=== PATIENT | female | born 1950 | race African-American/Black ===

== ENCOUNTER 2016-09-24 09:06 | Day surgery (SDC) | payer MEDICARE, OTHER ==
--- NOTE | ~2016-09-24 | PREOPHP ---
PreOp History and Physical [place] [id number] [facility] [place]. [address] NAME: EDILMA BETTS : 46 STATUS : [facility]#: [id number] AGE: 66 ADM/REG DATE : 09/24/16 MR#: [id number] REPORT SERV DATE: 09/28/16 DICTATED BY: ALEXANDRE VALDEZ III DATE: 09/28/16 REPORT STATUS : Draft TRANSCRIBED BY: MODJasmina DATE: 09/28/16 HISTORY OF PRESENT ILLNESS: This 66-year-old female comes to the operating for laparoscopic partial left colectomy and partial right colectomy for two separate neoplasms of the colon. The patient was recently found to be anemic. She was found to have a large mass in the proximal ascending colon. This was an ulcerated partly obstructing mass in the proximal ascending colon. Although the biopsy shows this to be a tubular villous adenoma, it is suspicious endoscopically for malignancy. The patient also was found to have a 2-cm polyp in the cecum and 2 sessile polyps, 8 to 10 mm in size, just proximal to the cecum. The patient comes now for a laparoscopic partial right colectomy, partial left colectomy. The patient is at marked increased risk for complications due to the severe lung disease which is oxygen dependent and due to obesity. These marked increased risks have been fully and completely explained to the patient. Her questions have been answered, and she wishes to proceed with surgery. PAST MEDICAL HISTORY: 1. Hypertension. 2. Gastroesophageal reflux disease. 3. COPD, oxygen dependent. 4. Congestive heart failure. 5. Insulin-dependent diabetes mellitus. 6. Obesity. 7. Hypothyroidism. 8. History of deep venous thrombosis. PAST SURGICAL HISTORY: Includes hysterectomy and cholecystectomy. MEDICATIONS: Omeprazole, insulin, Aldactone, lisinopril, oxycodone, Eliquis, Crestor, alprazolam, torsemide, Breo, and potassium. FAMILY HISTORY: Positive for hypertension and diabetes. SOCIAL HISTORY: The patient has a continued history of tobacco abuse. No history of alcohol use. ALLERGIES: NONSTEROIDAL ANTI-INFLAMMATORY MEDICATIONS, BETADINE, LEVEMIR, AND SULFA. REVIEW OF SYSTEMS: The patient complains of fatigue, weight gain, and swelling. PHYSICAL EXAMINATION: GENERAL: This is an extremely obese chronically ill-appearing female in no acute distress. She is alert and oriented x3. She is in a wheelchair due to difficulty ambulating. She is on home oxygen. HEENT: Unremarkable. Cranial nerves 2 through 12 are normal. LUNGS: Clear. PreOp History and Physical [address] [place]. [address] NAME: EDILMA BETTS : 46 STATUS : [facility] PAT#: [id number] AGE: 66 ADM/REG DATE : 09/24/16 MR#: [id number] REPORT SERV DATE: 09/28/16 DICTATED BY: ALEXANDRE VALDEZ III DATE: 09/28/16 REPORT STATUS : Draft TRANSCRIBED BY: MODJasmina DATE: 09/28/16 CARDIAC: Normal. ABDOMEN: Soft and nontender. VITAL SIGNS: Blood pressure 124/57, heart rate 93, and temperature 97.8. EXTREMITIES: Unremarkable. LABORATORY DATA: Colonoscopy shows a partly obstructing mass in the proximal descending colon which was biopsied and found to be a tubulovillous adenoma. The area was tattooed. There was a 2-cm mass in the cecum and 2 sessile polyps in the proximal ascending colon, 8 to 10 mm in size, which were not biopsied or removed. ASSESSMENT: 1. A 66-year-old female with proximal left colon mass, likely malignant, partially obstructing, and ulcerated. 2. Three separate polyps in the cecum and proximal right colon. 3. Obesity. 4. Hypertension. 5. Chronic obstructive pulmonary disease secondary to tobacco abuse. 6. Tobacco abuse. 7. Congestive heart failure. 8. Insulin-dependent diabetes mellitus. 9. Severe deconditioning. 10.History of deep venous thrombosis. 11.Hypothyroidism. 12.Oxygen dependency. PLAN: The patient comes to the operating room now for a laparoscopic partial right colectomy and partial left colectomy. These procedures, the risks, benefits, and alternatives, including but not limited to the risk for bleeding, infection, enterotomy, injury to abdominal structure, postop small-bowel obstruction, ileus, incisional hernia, dehiscence, anastomotic leak requiring reoperation, colostomy, ureteral injury, prolonged ventilator dependency, possible need for laparotomy, anastomotic leak requiring reoperation with colostomy, ureteral injury, possible need for full laparotomy, and unforeseen complications including deep venous thrombosis, pulmonary embolus, myocardial infarction, stroke, pneumonia, and have been fully and completely explained to the patient and her family at length prior to surgery. The fact that this is a major operation with high risk for morbidity mortality because of her medical problems, her obesity, and oxygen dependency has been explained. The expected length of recovery from both open laparoscopic procedures has been explained. The option of nonoperative management has been offered to the patient but declined. The patient's questions have been answered. She clearly understands the risks and agrees to surgery as planned. MIKEY/NIC Alexandre Valdez III, M.D. PreOp History and Physical [address] [address] NAME: EDILMA BETTS : 46 STATUS : [facility] PAT#: [id number] AGE: 66 ADM/REG DATE : 09/24/16 MR#: [id number] REPORT SERV DATE: 09/28/16 DICTATED BY: ALEXANDRE VALDEZ III DATE: 09/28/16 REPORT STATUS : Draft TRANSCRIBED BY: NIC DATE: 09/28/16 / [id number] CC: Jany Gomez
--- NOTE | ~2016-09-24 | EGD ---
EGD REPORT [facility] [address] [place] [address] NAME: YECENIA SANON : 46 STATUS : REG [facility]#: [id number] AGE: 66 ADM/REG DATE : 09/24/16 MR#: [id number] REPORT SERV DATE: 09/24/16 DICTATED BY: PRESTON ROBISON DATE: 09/24/16 REPORT STATUS : Draft TRANSCRIBED BY: [employer] DATE: 09/24/16 Endoscopy Center Patient Name: Yecenia Sanon Date of : 1950 Attending MD: PRESTON ROBISON MD Procedure Date No Time: 09/24/2016 Procedure: Upper GI endoscopy Indications: Anemia, Heartburn, Suspected esophageal reflux Referring MD: Narinder MCGINNIS MD Medicines: General Anesthesia Complications: No immediate complications. Procedure: After obtaining informed consent, the endoscope was passed under direct vision. Throughout the procedure, the patient's blood pressure, pulse, and oxygen saturations were monitored continuously. The GIF H190 [id number] was introduced through the mouth, and advanced to the third part of duodenum. The upper GI endoscopy was accomplished without difficulty. The patient tolerated the procedure. Findings: The examined esophagus was normal. The entire examined stomach was normal. The cardia and gastric fundus were normal on retroflexion. Two small angiodysplastic lesions without bleeding were found in the duodenal bulb. Impression: - Normal esophagus. - Normal stomach. - Two non-bleeding angiodysplastic lesions in the duodenum. Recommendation: - Follow an antireflux regimen. - Continue present medications. Procedure Code(s): --- Professional --- 74780, Esophagogastroduodenoscopy, flexible, transoral; diagnostic, including collection of specimen(s) by brushing or washing, when performed (separate procedure) Diagnosis Code(s): --- Professional --- K31.819, Angiodysplasia of stomach and duodenum without bleeding D64.9, Anemia, unspecified R12, Heartburn EGD REPORT [facility] [address] [address] NAME: YECENIA SANON : 46 STATUS : [facility] PAT#: [id number] AGE: 66 ADM/REG DATE : 09/24/16 MR#: [id number] REPORT SERV DATE: 09/24/16 DICTATED BY: PRESTON ROBISON. DATE: 09/24/16 REPORT STATUS : Draft TRANSCRIBED BY: [employer] DATE: 09/24/16 CPT copyright 2013 [employer]. All rights reserved. The codes documented in this report are preliminary and upon compositor apprentice review may be revised to meet current compliance requirements. PRESTON ROBISON MD 09/24/2016 12:37 PM This report has been signed electronically. Number of Addenda: 0 Note Initiated On: 09/24/2016 11:45 AM Scope Withdrawal Time 0 hours 0 minutes 0 seconds [id number] [id number]
--- NOTE | ~2016-09-24 | PREOPHP ---
PreOp History and Physical [place] [id number] [facility] [place]. [address] NAME: EDILMA BETTS : [birth year] STATUS : [facility]#: [id number] AGE: 66 ADM/REG DATE : 09/24/16 MR#: [id number] REPORT SERV DATE: 10/28/16 DICTATED BY: ALEXANDRE VALDEZ III DATE: 09/28/16 REPORT STATUS : Draft TRANSCRIBED BY: MODJasmina DATE: 09/28/16 HISTORY OF PRESENT ILLNESS: This 66-year-old female comes to the operating for laparoscopic partial left colectomy and partial right colectomy for two separate neoplasms of the colon. The patient was recently found to be anemic. She was found to have a large mass in the proximal ascending colon. This was an ulcerated partly obstructing mass in the proximal descending colon. Although the biopsy shows this to be a tubular villous adenoma, it is suspicious endoscopically for malignancy. The patient also was found to have a 2-cm polyp in the cecum and 2 sessile polyps, 8 to 10 mm in size, just proximal to the cecum. The patient comes now for a laparoscopic partial right colectomy, partial left colectomy. The patient is at marked increased risk for complications due to the severe lung disease which is oxygen dependent and due to obesity. These marked increased risks have been fully and completely explained to the patient. Her questions have been answered, and she wishes to proceed with surgery. PAST MEDICAL HISTORY: 1. Hypertension. 2. Gastroesophageal reflux disease. 3. COPD, oxygen dependent. 4. Congestive heart failure. 5. Insulin-dependent diabetes mellitus. 6. Obesity. 7. Hypothyroidism. 8. History of deep venous thrombosis. PAST SURGICAL HISTORY: Includes hysterectomy and cholecystectomy. MEDICATIONS: Omeprazole, insulin, Aldactone, lisinopril, oxycodone, Eliquis, Crestor, alprazolam, torsemide, Breo, and potassium. FAMILY HISTORY: Positive for hypertension and diabetes. SOCIAL HISTORY: The patient has a continued history of tobacco abuse. No history of alcohol use. ALLERGIES: NONSTEROIDAL ANTI-INFLAMMATORY MEDICATIONS, BETADINE, LEVEMIR, AND SULFA. REVIEW OF SYSTEMS: The patient complains of fatigue, weight gain, and swelling. PHYSICAL EXAMINATION: GENERAL: This is an extremely obese chronically ill-appearing female in no acute distress. She is alert and oriented x3. She is in a wheelchair due to difficulty ambulating. She is on home oxygen. HEENT: Unremarkable. Cranial nerves 2 through 12 are normal. LUNGS: Clear. PreOp History and Physical [address] [place]. [address] NAME: EDILMA BETTS : [birth year] STATUS : [facility] PAT#: [id number] AGE: 66 ADM/REG DATE : 09/24/16 MR#: [id number] REPORT SERV DATE: 10/28/16 DICTATED BY: ALEXANDRE VALDEZ III DATE: 09/28/16 REPORT STATUS : Draft TRANSCRIBED BY: MODJasmina DATE: 09/28/16 CARDIAC: Normal. ABDOMEN: Soft and nontender. VITAL SIGNS: Blood pressure 124/57, heart rate 93, and temperature 97.8. EXTREMITIES: Unremarkable. LABORATORY DATA: Colonoscopy shows a partly obstructing mass in the proximal descending colon which was biopsied and found to be a tubulovillous adenoma. The area was tattooed. There was a 2-cm mass in the cecum and 2 sessile polyps in the proximal descending colon, 8 to 10 mm in size, which were not biopsied or removed. ASSESSMENT: 1. A 66-year-old female with proximal left colon mass, likely malignant, partially obstructing, and ulcerated. 2. Three separate polyps in the cecum and proximal right colon. 3. Obesity. 4. Hypertension. 5. Chronic obstructive pulmonary disease secondary to tobacco abuse. 6. Tobacco abuse. 7. Congestive heart failure. 8. Insulin-dependent diabetes mellitus. 9. Severe deconditioning. 10.History of deep venous thrombosis. 11.Hypothyroidism. 12.Oxygen dependency. PLAN: The patient comes to the operating room now for a laparoscopic partial right colectomy and partial left colectomy. These procedures, the risks, benefits, and alternatives, including but not limited to the risk for bleeding, infection, enterotomy, injury to abdominal structure, postop small-bowel obstruction, ileus, incisional hernia, dehiscence, anastomotic leak requiring reoperation, colostomy, ureteral injury, prolonged ventilator dependency, possible need for laparotomy, anastomotic leak requiring reoperation with colostomy, ureteral injury, possible need for full laparotomy, and unforeseen complications including deep venous thrombosis, pulmonary embolus, myocardial infarction, stroke, pneumonia, and have been fully and completely explained to the patient and her family at length prior to surgery. The fact that this is a major operation with high risk for morbidity mortality because of her medical problems, her obesity, and oxygen dependency has been explained. The expected length of recovery from both open laparoscopic procedures has been explained. The option of nonoperative management has been offered to the patient but declined. The patient's questions have been answered. She clearly understands the risks and agrees to surgery as planned. MIKEY/NIC Alexandre Valdez III, M.D. PreOp History and Physical [address] [address] NAME: EDILMA BETTS : [birth year] STATUS : [facility] PAT#: [id number] AGE: 66 ADM/REG DATE : 09/24/16 MR#: [id number] REPORT SERV DATE: 10/28/16 DICTATED BY: ALEXANDRE VALDEZ III DATE: 09/28/16 REPORT STATUS : Draft TRANSCRIBED BY: NIC DATE: 09/28/16 / [id number] CC: Jany Gomez
--- NOTE | ~2016-09-24 | EGD ---
EGD REPORT [facility] [address] [address] NAME: EYCENIA SANON : 46 STATUS : [facility]#: [id number] AGE: 66 ADM/REG DATE : 09/24/16 MR#: [id number] REPORT SERV DATE: 09/24/16 DICTATED BY: PRESTON ROBISON DATE: 09/24/16 REPORT STATUS : Draft TRANSCRIBED BY: [employer] DATE: 09/24/16 Endoscopy Center Patient Name: Yecenia Sanon Date of : 1950 Attending MD: PRESTON ROBISON MD Procedure Date No Time: 09/24/2016 Procedure: Colonoscopy Indications: Abdominal pain in the right lower quadrant, Anemia, Constipation Referring MD: Narinder MCGINNIS MD Medicines: General Anesthesia Complications: No immediate complications. Procedure: Pre-Anesthesia Assessment: - ASA Grade Assessment: IV - A patient with severe systemic disease that is a constant threat to life. After I obtained informed consent, the scope was passed under direct vision. Throughout the procedure, the patient's blood pressure, pulse, and oxygen saturations were monitored continuously. The PCF [id number] was introduced through the anus and advanced to the cecum, identified by appendiceal orifice and ileocecal valve. The colonoscopy was performed without difficulty. The patient tolerated the procedure. The quality of the bowel preparation was adequate to identify polyps. Findings: The perianal and digital rectal examinations were normal. A polypoid, sessile, ulcerated partially obstructing medium-sized mass was found in the proximal descending colon. The mass was non-circumferential. This was biopsied with a cold forceps for histology. Area was successfully injected with 4 mL Spot (carbon black) for tattooing. A sessile polyp was found in the cecum. The polyp was 20 mm in size. Two sessile polyps were found in the proximal ascending colon. The polyps were 8 to 10 mm in size. Internal hemorrhoids were found during endoscopy and were mild. Impression: - Likely malignant partially obstructing tumor in the proximal descending colon. Removal was not done. Biopsied. Injected. - One 20 mm polyp in the cecum. - Two 8 to 10 mm polyps in the proximal ascending colon. - Internal hemorrhoids. Recommendation: - Await pathology results. EGD REPORT [address] [address] NAME: YECENIA SANON : 46 STATUS : [facility] PAT#: [id number] AGE: 66 ADM/REG DATE : 09/24/16 MR#: [id number] REPORT SERV DATE: 09/24/16 DICTATED BY: PRESTON ROBISON DATE: 09/24/16 REPORT STATUS : Draft TRANSCRIBED BY: [employer] DATE: 09/24/16 - Refer to a surgeon. Procedure Code(s): --- Professional --- 48515, Colonoscopy, flexible, proximal to splenic flexure; with biopsy, single or multiple 56489, Colonoscopy, flexible, proximal to splenic flexure; with directed submucosal injection(s), any substance Diagnosis Code(s): --- Professional --- D49.0, Neoplasm of unspecified behavior of digestive system D12.2, Benign neoplasm of ascending colon D12.0, Benign neoplasm of cecum K64.8, Other hemorrhoids R10.31, Right lower quadrant pain D64.9, Anemia, unspecified K59.00, Constipation, unspecified CPT copyright 2013 [employer]. All rights reserved. The codes documented in this report are preliminary and upon commercial litigation attorney review may be revised to meet current compliance requirements. PRESTON ROBISON MD 09/24/2016 1:20 PM This report has been signed electronically. Number of Addenda: 0 Note Initiated On: 09/24/2016 11:44 AM Scope Withdrawal Time 0 hours 21 minutes 40 seconds [address] [place] [address]
--- NOTE | ~2016-09-24 | PREOPHP ---
PreOp History and Physical [facility] [address] [address] NAME: EDILMA SANON : [birth year] STATUS : [facility]#: [id number] AGE: 66 ADM/REG DATE : 09/24/16 MR#: [id number] REPORT SERV DATE: 09/28/16 DICTATED BY: ALEXANDRE VALDEZ III DATE: 09/28/16 REPORT STATUS : Draft TRANSCRIBED BY: NIC DATE: 09/28/16 ADDENDUM: It should be noted Ms. Sanon is on Eliquis which will need to be stopped perioperatively for her surgery. Therefore, the increased risk for thromboembolic complications while this is held as well as the increased risk of bleeding because of the use of this medication has been explained. Again, the patient's questions have been answered, and she understands the risks and agrees to surgery as planned. MIKEY/NIC Alexandre Valdez III, M.D. / [id number]
[~2016-09-24 09:06] MED LIST: BREO ELLIPTA 21 EACH INH; COUMADIN6 MG PO; COZ50 PO; CRESTOR10 PO; DEMA100 PO; DIOV160 PO; ELIQUIS 5 MG TAB5 MG PO; EYE DROPS OTC OP; FLINTSTONE VIT PO; IRON PO; IRON SUPPLEMENT PO; KLOR-CON 1010 MEQ PO; L40 PO; LANTUS SC; LEVAQUIN750 MG PO; MULTIPLE VIT PO; NEXIUM40 PO; NORCO1 TAB PO; NOVOLOG SC; ROXICODONE15 MG PO; SPIRO25 PO; STERAPRED DS10 MG PO; VENTOLIN HFA INH; VITAMIN D400 UNI1 PO; X5 PO; ZANTAC150 MG PO; ZESTRIL5 MG PO
[2016-10-04] MEDS ORDERED: NOVOLOG SC (14:02)
[2016-10-04] MEDS ORDERED: ALBUTEROL0.63 MG/3 INH (14:07)
== END 2016-09-24 23:59 | disposition home or self-care (01) ==
LOC: DMU 09:06
PROVIDERS: Internal Medicine Gastroenterology
PROC: 3E0H8GC Introduction of Other Therapeutic Substance into Lower GI, Via Natural or Artificial Opening Endoscopic (ICD-10-PCS; 2016-09-24)
PROC: 0DJ08ZZ Inspection of Upper Intestinal Tract, Via Natural or Artificial Opening Endoscopic (ICD-10-PCS; principal; 2016-09-24 10:30)
PROC: 0DBM8ZX Excision of Descending Colon, Via Natural or Artificial Opening Endoscopic, Diagnostic (ICD-10-PCS; 2016-09-24 10:30)
DX: D12.4 Benign neoplasm of descending colon (principal); K31.819 Angiodysplasia of stomach and duodenum without bleeding; K63.5 Polyp of colon; K64.8 Other hemorrhoids; K21.9 Gastro-esophageal reflux disease without esophagitis; I11.0 Hypertensive heart disease with heart failure; I50.9 Heart failure, unspecified; I25.10 Atherosclerotic heart disease of native coronary artery without angina pectoris; E78.5 Hyperlipidemia, unspecified; E03.9 Hypothyroidism, unspecified; E11.9 Type 2 diabetes mellitus without complications; F41.9 Anxiety disorder, unspecified; F17.210 Nicotine dependence, cigarettes, uncomplicated; J44.9 Chronic obstructive pulmonary disease, unspecified; G47.33 Obstructive sleep apnea (adult) (pediatric); H40.9 Unspecified glaucoma; M19.90 Unspecified osteoarthritis, unspecified site; M10.9 Gout, unspecified; Z86.718 Personal history of other venous thrombosis and embolism; Z91.09 Other allergy status, other than to drugs and biological substances; Z88.2 Allergy status to sulfonamides; Z88.8 Allergy status to other drugs, medicaments and biological substances; Z79.4 Long term (current) use of insulin; Z79.01 Long term (current) use of anticoagulants; Z79.51 Long term (current) use of inhaled steroids; Z79.899 Other long term (current) drug therapy; Z90.710 Acquired absence of both cervix and uterus; Z90.49 Acquired absence of other specified parts of digestive tract; Z98.890 Other specified postprocedural states
CPT/HCPCS: 82962; 88305; J0330; J2370; J2405

== ENCOUNTER 2016-10-11 06:05 | Inpatient (IN) | payer MEDICARE, OTHER ==
[2016-10-09 17:36] LABS: BASOPHILS 0 %; EOSINOPHILS 0.8 %; EOSINOPHILS ABSOLUTE 0.05 10/3/uL (0.0-0.53); HEMATOCRIT 31.8 % (36.0-48.0); IMMATURE GRANULOCYTES 0.3 %; IMMATURE GRANULOCYTES ABSOLUTE 0.02 10/3/uL (0.0-0.11); LYMPHOCYTES 32.3 %; LYMPHOCYTES ABSOLUTE 2.02 10/3/uL (0.67-4.30); MANUAL DIFF NO %; MEAN CORPUS HGB CONC 31.4 g/dL (32.0-36.0); MEAN CORPUSCULAR HEMOGLOB 23.7 pg (26.0-34.0); MEAN CORPUSCULAR VOLUME 75.4 fL (80-100); MEAN PLATELET VOLUME 10.7 fL (9.2-13.0); MONOCYTES 8.8 %; MONOCYTES ABSOLUTE 0.55 10/3/uL (0.21-1.20); NEUTROPHILS 57.8 %; NEUTROPHILS ABSOLUTE 3.61 10/3/uL (2.02-8.40); PLATELET COUNT 186 10/3/uL (150-400); RBC DISTRIBUTION WIDTH 19.7 % (12.0-16.0); RED CELL COUNT 4.22 10/6/uL (4.0-5.6); WHITE BLOOD CELLS 6.3 10/3/uL (4.5-10.5)
[2016-10-09 17:39] LABS: INTERNATIONAL NORMAL RATI 1.2 UNITS (-); PARTIAL THROMBO TIME 37.7 SEC (22.5-37.2); PROTIME (NOT ORD) 15.1 SEC (12.0-14.5)
[2016-10-09 17:46] LABS: A/G RATIO 0.7 (0.7-1.9); ALBUMIN 3.2 G/DL (3.5-5.0); ALKALINE PHOSPHATASE 93 U/L (45-117); CHLORIDE, SERUM 105 MMOL/L (96-112); CO2 (CARBON DIOXIDE) 26 MMOL/L (24-34); CREATININE 1.74 MG/DL (0.55-1.02); GFR AFRICAN AMERICAN 34 ML/MIN (>=60); GFR NON AFRICAN AMERICAN 30 ML/MIN (>=60); GLOBULIN 4.8 G/DL (2.5-4.1); GLUCOSE, SERUM 123 MG/DL (60-99); POTASSIUM, SERUM 5.2 MMOL/L (3.5-5.3); SGOT(AST) 14 U/L (5-40); SGPT(ALT) 15 U/L (5-65); SODIUM, SERUM 139 MMOL/L (135-148); TOTAL BILIRUBIN 0.2 MG/DL (0-1.2)
[2016-10-09 17:47] LABS: BUN (BLOOD UREA NITROGEN) 50 MG/DL (6-23); CALCIUM, SERUM 10.3 MG/DL (8.5-10.4); CEA 4.3 NG/ML
--- NOTE | ~2016-10-11 | PREOPHP ---
PreOp History and Physical [place] [id number] [facility] [place]. [address] NAME: EDILMA SANON : 46 STATUS : DIS IN PAT#: [id number] AGE: 66 ADM/REG DATE : 10/11/16 MR#: [id number] REPORT SERV DATE: 10/10/16 DICTATED BY: ALEXANDRE VALDEZ III DATE: 09/28/16 REPORT STATUS : Cancelled TRANSCRIBED BY: MODL DATE: 09/28/16 HISTORY OF PRESENT ILLNESS: This 66-year-old female comes to the operating for laparoscopic partial left colectomy and partial right colectomy for two separate neoplasms of the colon. The patient was recently found to be anemic. She was found to have a large mass in the proximal ascending colon. This was an ulcerated partly obstructing mass in the proximal ascending colon. Although the biopsy shows this to be a tubular villous adenoma, it is suspicious endoscopically for malignancy. The patient also was found to have a 2-cm polyp in the cecum and 2 sessile polyps, 8 to 10 mm in size, just proximal to the cecum. The patient comes now for a laparoscopic partial right colectomy, partial left colectomy. The patient is at marked increased risk for complications due to the severe lung disease which is oxygen dependent and due to obesity. These marked increased risks have been fully and completely explained to the patient. Her questions have been answered, and she wishes to proceed with surgery. PAST MEDICAL HISTORY: 1. Hypertension. 2. Gastroesophageal reflux disease. 3. COPD, oxygen dependent. 4. Congestive heart failure. 5. Insulin-dependent diabetes mellitus. 6. Obesity. 7. Hypothyroidism. 8. History of deep venous thrombosis. PAST SURGICAL HISTORY: Includes hysterectomy and cholecystectomy. MEDICATIONS: Omeprazole, insulin, Aldactone, lisinopril, oxycodone, Eliquis, Crestor, alprazolam, torsemide, Breo, and potassium. FAMILY HISTORY: Positive for hypertension and diabetes. SOCIAL HISTORY: The patient has a continued history of tobacco abuse. No history of alcohol use. ALLERGIES: NONSTEROIDAL ANTI-INFLAMMATORY MEDICATIONS, BETADINE, LEVEMIR, AND SULFA. REVIEW OF SYSTEMS: The patient complains of fatigue, weight gain, and swelling. PHYSICAL EXAMINATION: GENERAL: This is an extremely obese chronically ill-appearing female in no acute distress. She is alert and oriented x3. She is in a wheelchair due to difficulty ambulating. She is on home oxygen. HEENT: Unremarkable. Cranial nerves 2 through 12 are normal. LUNGS: Clear. PreOp History and Physical [address] [place]. [address] NAME: EDILMA SANON : [birth year] STATUS : DIS IN PAT#: [id number] AGE: 66 ADM/REG DATE : 10/11/16 MR#: [id number] REPORT SERV DATE: 10/10/16 DICTATED BY: ALEXANDRE VALDEZ III DATE: 09/28/16 REPORT STATUS : Cancelled TRANSCRIBED BY: MODL DATE: 09/28/16 CARDIAC: Normal. ABDOMEN: Soft and nontender. VITAL SIGNS: Blood pressure 124/57, heart rate 93, and temperature 97.8. EXTREMITIES: Unremarkable. LABORATORY DATA: Colonoscopy shows a partly obstructing mass in the proximal descending colon which was biopsied and found to be a tubulovillous adenoma. The area was tattooed. There was a 2-cm mass in the cecum and 2 sessile polyps in the proximal ascending colon, 8 to 10 mm in size, which were not biopsied or removed. ASSESSMENT: 1. A 66-year-old female with proximal left colon mass, likely malignant, partially obstructing, and ulcerated. 2. Three separate polyps in the cecum and proximal right colon. 3. Obesity. 4. Hypertension. 5. Chronic obstructive pulmonary disease secondary to tobacco abuse. 6. Tobacco abuse. 7. Congestive heart failure. 8. Insulin-dependent diabetes mellitus. 9. Severe deconditioning. 10.History of deep venous thrombosis. 11.Hypothyroidism. 12.Oxygen dependency. PLAN: The patient comes to the operating room now for a laparoscopic partial right colectomy and partial left colectomy. These procedures, the risks, benefits, and alternatives, including but not limited to the risk for bleeding, infection, enterotomy, injury to abdominal structure, postop small-bowel obstruction, ileus, incisional hernia, dehiscence, anastomotic leak requiring reoperation, colostomy, ureteral injury, prolonged ventilator dependency, possible need for laparotomy, anastomotic leak requiring reoperation with colostomy, ureteral injury, possible need for full laparotomy, and unforeseen complications including deep venous thrombosis, pulmonary embolus, myocardial infarction, stroke, pneumonia, and have been fully and completely explained to the patient and her family at length prior to surgery. The fact that this is a major operation with high risk for morbidity mortality because of her medical problems, her obesity, and oxygen dependency has been explained. The expected length of recovery from both open laparoscopic procedures has been explained. The option of nonoperative management has been offered to the patient but declined. The patient's questions have been answered. She clearly understands the risks and agrees to surgery as planned. ADDENDUM: It should be noted Ms. Sanon is on Eliquis which will need to be stopped perioperatively for her surgery. Therefore, the increased risk for thromboembolic complications while this is held as well as the increased risk of bleeding because of the use of this medication has been explained. Again, the patient's questions have been answered, and she understands the risks and agrees to surgery as planned. PreOp History and Physical [address] [place]. [address] NAME: EDILMA SANON : 46 STATUS : DIS IN PAT#: [id number] AGE: 66 ADM/REG DATE : 10/11/16 MR#: [id number] REPORT SERV DATE: 10/10/16 DICTATED BY: ALEXANDRE VALDEZ III DATE: 09/28/16 REPORT STATUS : Cancelled TRANSCRIBED BY: NIC DATE: 09/28/16 MIKEY/NIC Alexandre Valdez III, M.D. / [id number] / [id number] CC: Jany Gomez
--- NOTE | ~2016-10-11 | OP ---
Record Of Operation [facility] [address] [place]. [address] NAME: EDILMA BETTS : 48 STATUS : ADM IN PAT#: [id number] AGE: 66 ADM/REG DATE : 10/11/16 MR#: [id number] REPORT SERV DATE: 10/11/16 DICTATED BY: ALEXANDRE VALDEZ III DATE: 10/11/16 REPORT STATUS : Draft TRANSCRIBED BY: MODL DATE: 10/11/16 DATE OF PROCEDURE: 10/11/2016 PREOPERATIVE DIAGNOSES: 1. Large ulcerated mass of the splenic flexure, possible malignancy. 2. Large polyp of the cecum, too large to be removed endoscopically. OPERATIVE DIAGNOSES: 1. Large mass of the distal transverse colon, probable malignancy. 2. Polypoid masses of the cecum. 3. Incisional hernia. PROCEDURE: Laparoscopic-assisted resection of distal transverse colon and proximal left colon with mobilization of splenic flexure, primary anastomosis, extensive lysis of adhesions, resection of right colon and terminal ileum with ileocolonic anastomosis, and repair of incisional hernia and mobilization of splenic flexure. SURGEON: Alexandre Valdez M.D. ANESTHESIA: General with intubation. COMPLICATIONS: None. ESTIMATED BLOOD LOSS: 50 mL. SPECIMENS: Terminal ileum and proximal right colon, distal transverse colon and proximal left colon. DRAINS: [place] and subcutaneous tissue. LAP AND SPONGE COUNT: Correct x3. BRIEF HISTORY: This 66-year-old female recently underwent colonoscopy for anemia. She was found to have a large ulcerated mass at the splenic flexure of the left colon and a large polyp in the cecum of the right colon as well as two smaller polyps just distal to this. The patient was morbidly obese and had multiple comorbid risk factors and was felt to be at high risk for any surgical intervention. This was fully and completely explained to the patient's family at length prior to surgery. The procedure, laparoscopic resection involved portion of the left colon and right colon, possible laparotomy, the risks, benefits, and alternatives, including but not limited to the risk for bleeding, infection, enterotomy, injury to any abdominal structure, postop small bowel obstruction, ileus, incisional hernia, dehiscence, anastomotic leak involving either one or both of the anastomoses, possible need for laparotomy, prolonged ventilator dependency, ureteral injury, and unforeseen complications including deep venous thrombosis, pulmonary embolus, myocardial infarction, stroke, pneumonia, and , were fully and completely explained to the patient's family at length prior to surgery. The fact that this was a major operation with high risk for Record Of Operation [address] [place]. [address] NAME: EDILMA BETTS : 48 STATUS : ADM IN PAT#: [id number] AGE: 66 ADM/REG DATE : 10/11/16 MR#: [id number] REPORT SERV DATE: 10/11/16 DICTATED BY: ALEXANDRE VALDEZ III DATE: 10/11/16 REPORT STATUS : Draft TRANSCRIBED BY: MODJasmina DATE: 10/11/16 morbidity and mortality was explained as well as expected length of recovery of both open and laparoscopic procedures. The patient and family had questions, which were answered. They fully understood the risks and agreed to surgery as planned. FINDINGS: The patient had a large obvious malignancy in the distal transverse colon. There was no evidence for carcinomatosis or metastatic disease. She had extensive adhesions from her previous hysterectomy, involving the omentum and periumbilical area with an incisional hernia in this location. The procedure was extremely difficult secondary to the patient's morbid obesity. PROCEDURE IN DETAIL: After being appropriately identified and after discussing the risks of surgery with the patient and her family again in the preoperative area, and after appropriate bowel preparation at home, the patient was taken to the operating room and placed in supine position on the operating room table. General anesthesia was administered and she was intubated without difficulty. A Shaver catheter was inserted. The abdomen was prepped and draped sterilely in the usual fashion. After an appropriate "time-out" per JCAHO standards, a small transverse incision was made just below the umbilicus. The skin and fascia on either side of this were elevated with towel clips. A Veress needle was placed through the incision into the peritoneal cavity. Correct position of the needle in the peritoneal cavity was confirmed by the hanging drop test. The abdominal cavity was then insufflated to about 13 mmHg of carbon dioxide. Correct position of the air in the peritoneal cavity was confirmed by palpation. The Veress needle was removed and replaced with 10-mm trocar. The laparoscope was placed through this. A 5-mm trocar was then placed in the left upper quadrant under direct vision with the laparoscope. Another 5-mm trocar was placed in the right upper quadrant under direct vision with the laparoscope and also in the right lateral abdominal wall, also under direct vision with the laparoscope. The abdomen was inspected. There was no evidence for carcinomatosis or peritoneal implants. We turned our attention to the left colon. The patient was rolled slightly to the right. The left colon was grasped and retracted medially. Using sharp dissection, peritoneal reflection to the left colon was divided along the line of Toldt. We identified the area which had been marked by the endoscopist, which was at the splenic flexure. It was later found that the actual tumor was proximal to this marking. It was necessary to divide the splenic flexure. Using a Harmonic scalpel, the splenocolic ligament was divided. The colon was further mobilized medially. After adequate mobilization of the colon, now we made an incision in the upper abdomen in the midline. The incision was continued through the subcutaneous tissue. Hemostasis was controlled with cautery. The incision was continued through the fascia. There were dense adhesions between the patient's omentum and the underside of the abdominal wall just above the umbilicus. Using sharp dissection, these adhesions were divided. The left colon was identified and mobilized medially. The tumor was palpable in the distal transverse colon, proximal to the area which had been marked. Further mobilization of the colon was performed to allow for resection. We selected a point for division of the mid transverse colon, proximal to the tumor. A window was made in the mesentery of the colon at this point. A CONCEPCIÓN stapler was used to divide the colon at this point. We then selected a point for division of the left colon, Record Of Operation [facility] [address] [place]. [address] NAME: EDILMA BETTS : 48 STATUS : ADM IN PAT#: [id number] AGE: 66 ADM/REG DATE : 10/11/16 MR#: [id number] REPORT SERV DATE: 10/11/16 DICTATED BY: ALEXANDRE VALDEZ III DATE: 10/11/16 REPORT STATUS : Draft TRANSCRIBED BY: MODL DATE: 10/11/16 distal to the splenic flexure. A window was made in the mesentery to the colon at this point and CONCEPCIÓN stapler was used to divide the colon at this point. The mesentery to this portion of the distal colon and proximal left colon was then divided along its base, using Harmonic scalpel. This was done along the base of the mesentery so as to perform a correct oncologic dissection of the lymphovascular supply to this portion of the colon. The involved colon was thus removed and sent to pathology, interpreted as containing the tumor which appeared to be malignant with clear margins. We then performed a fjkb-yp-yulr anastomosis between the divided mid transverse colon and proximal left colon. This was performed by aligning the antimesenteric border of the colon proximally and distally with interrupted 3-0 silk sutures. A small opening was then made in the antimesenteric border of the colon proximally and distally, and then a CONCEPCIÓN stapler was placed through this and fired. The defect created by the stapler was then closed with a TA60 stapler. This staple line was oversewn with interrupted 3-0 silk sutures. The "crotch" anastomosis was secured with 3-0 silk sutures. Upon completion of this, the anastomosis was widely patent to palpation. It was not twisted or kinked in anyway. It was not under any tension. The area was irrigated copiously with saline. Hemostasis was assured. We then turned our attention to the right colon. There was noted to be periumbilical incisional hernia. This was closed with closure of the abdominal wall. The right colon was identified. It was retracted medially. Using sharp dissection, the peritoneal reflection of the right colon was divided along the line of Toldt, from the cecum to the hepatic flexure. After full mobilization of the right colon, we selected a point for division of the terminal ileum just proximal to the ileocecal valve. A window was made in the mesentery to the ileum at this point and CONCEPCIÓN stapler was used to divide the ileum at this point. The right colon was then divided in the midportion of the right colon with the CONCEPCIÓN stapler. The mesentery to this portion of the proximal right colon and terminal ileum was then divided using Harmonic scalpel, along the base of the mesentery. The right colon was thus removed and sent to pathology and interpreted as containing a large polyp in the cecum and two small polyps just distal to this. We then performed a vhsy-yc-pzxu anastomosis between the divided terminal ileum and mid right colon. This was performed by aligning the antimesenteric border of the small bowel with antimesenteric border of the colon with interrupted 3-0 silk sutures. A small opening was then made in the antimesenteric border of the small bowel and the corresponding antimesenteric border of the colon. A CONCEPCIÓN stapler was placed through this and fired. The defect created by the stapler was closed with a TA60 stapler. The staple line was oversewn with interrupted 3-0 silk sutures. The "crotch" anastomosis was secured with 3-0 silk sutures. Upon completion of this, the anastomosis was widely patent to palpation. It was not twisted or kinked in anyway. It was not under any tension. The area was irrigated copiously with saline. Hemostasis was assured. After hemostasis was assured, the fascia was closed with a running looped #1 PDS suture. This was done so as to incorporate the incisional hernia, which was repaired with the closure. The subcutaneous tissue was closed with running 3-0 chromic suture over a Gabriela drain, which was brought out through the inferior aspect of the incision. All skin incisions were closed with running subcuticular 4 0 Monocryl stitches after the trocars were removed. Dressings were applied. Anesthesia was reversed and the patient was taken to the recovery room in stable condition. She tolerated Record Of Operation [address] [place]. [address] NAME: EDILMA BETTS : 46 STATUS : ADM IN [facility]#: [id number] AGE: 66 ADM/REG DATE : 10/11/16 MR#: [id number] REPORT SERV DATE: 10/11/16 DICTATED BY: ALEXANDRE VALDEZ III DATE: 10/11/16 REPORT STATUS : Draft TRANSCRIBED BY: MODL DATE: 10/11/16 the procedure well. Her family was informed of the results of surgery. This procedure was extremely difficult secondary to the patient's morbid obesity, which increased the length of the procedure by 100%. For this reason, modifier 22 was added to the procedure code. MIKEY/NIC Alexandre Valdez III, M.D. / [id number] CC: Jany Richter III, M.D. David Collins, M.D.
--- NOTE | ~2016-10-11 | CN ---
Consultation Report [facility] [address] [place]. [address] NAME: EDILMA BETTS : 48 STATUS : ADM IN [facility]#: [id number] AGE: 66 ADM/REG DATE : 10/11/16 MR#: [id number] REPORT SERV DATE: 10/11/16 DICTATED BY: PRESTON SHIN DATE: 10/11/16 REPORT STATUS : Draft TRANSCRIBED BY: MODL DATE: 10/11/16 CONSULTATION DATE OF CONSULTATION: 10/11/2016 REASON FOR CONSULTATION: COPD. HISTORY OF PRESENT ILLNESS: The patient is a 66-year-old white female with a past medical history of large colonic mass; COPD, on oxygen at home; type 2 diabetes and heart failure; who presented to Dr. Henry's service earlier today where she underwent a laparoscopic partial left colectomy and partial right colectomy for two separate neoplasms of the colon. The patient tolerated the surgery well. In speaking with Anesthesia, there were no complications and she extubated postoperatively okay and was placed on BiPAP given her history of COPD and home oxygen dependence. The patient was then transferred to the ICU. She is not on vasopressors. We are consulted for assistance in management of her COPD. PAST MEDICAL HISTORY: 1. COPD, oxygen dependent. 2. Hypertension. 3. Gastroesophageal reflux disease. 4. Congestive heart failure. 5. Type 2 diabetes. 6. Obesity. 7. Hypothyroidism. 8. History of DVT, on Eliquis. HOME MEDICATIONS: See medication reconciliation form. ALLERGIES: INCLUDE NSAIDS, LEVEMIR, AND SULFA. SOCIAL HISTORY: Remote history of tobacco use. No alcohol or IV drug abuse. FAMILY HISTORY: Hypertension and diabetes. REVIEW OF SYSTEMS: A 10-point review of systems is negative except as mentioned in the HPI. PHYSICAL EXAMINATION: VITAL SIGNS: Temperature, afebrile; heart rate 96, respiratory rate 17; blood pressure 160/48. GENERAL: No acute distress. Sleeping, on BiPAP. HEENT: Pupils equal, round, and reactive to light. Extraocular movements intact. Oropharynx is clear. Moist mucous membranes. NECK: Supple. Nontender. No lymphadenopathy. No thyromegaly. No jugular venous Consultation Report [facility] [address] [facility] [place]. [address] NAME: EDILMA BETTS : 48 STATUS : ADM IN PAT#: [id number] AGE: 66 ADM/REG DATE : 10/11/16 MR#: [id number] REPORT SERV DATE: 10/11/16 DICTATED BY: PRESTON SHIN DATE: 10/11/16 REPORT STATUS : Draft TRANSCRIBED BY: NIC DATE: 10/11/16 distention. LUNGS: Clear to auscultation bilaterally. CARDIOVASCULAR: Regular rate and rhythm. No murmurs, rubs, or gallops. ABDOMEN: Soft, nontender, nondistended. Positive bowel sounds. No hepatosplenomegaly. EXTREMITIES: No cyanosis, clubbing, or edema. NEUROLOGIC: Alert and oriented x3. Cranial nerves intact. PSYCH: Mood appropriate. LABS AND IMAGING: Chest x-ray shows a little bit of venous congestion with bibasilar atelectasis and tiny amounts of pleural fluid. No acute infiltrates. Metabolic profile, remarkable for a creatinine of 1.7. CBC, unremarkable. Postop labs are pending. ASSESSMENT AND PLAN: The patient is a 66-year-old female with a past medical history of chronic obstructive pulmonary disease, diabetes and hypertension, who is now postop day #0 from left-sided colectomy and partial right colectomy for two separate colon masses with underlying chronic obstructive pulmonary disease, now extubated and on BiPAP in the ICU. We will get an ABG to ensure the patient is not retaining CO2. If her ABG looks okay, we will take her off BiPAP and just let her sleep with it tonight. We will resume all of her home bronchodilators. No evidence of an acute exacerbation for now. We will continue to follow along with you and help manage her chronic obstructive pulmonary disease. Appreciate the consult. Please call with any questions. JE/NIC Preston Shin MD / [id number] CC: Jany Richter III, M.D.
--- NOTE | ~2016-10-11 | DS ---
Discharge Summary [facility] [address] [facility] [place]. [address] NAME: EDILMA BETTS : 46 STATUS : DIS IN PAT#: [id number] AGE: 66 ADM/REG DATE : 10/11/16 MR#: [id number] REPORT SERV DATE: 11/02/16 DICTATED BY: ALEXANDRE VALDEZ III DATE: 11/01/16 REPORT STATUS : Draft TRANSCRIBED BY: MODL DATE: 11/01/16 Data Collection from hospitalization DISCHARGE DIAGNOSES: 1. Large mass of the distal transverse colon - probable malignancy. 2. Polypoid masses of the cecum. 3. Incisional hernia. 4. Hypertension. 5. Insulin-dependent diabetes mellitus. 6. Gastroesophageal reflux disease. 7. Chronic obstructive pulmonary disease. 8. Congestive heart failure. 9. Obesity. 10.Hypothyroidism. 11.Tobacco use. CONSULTATIONS: Mook Shin MD. PROCEDURES PERFORMED: 1. Laparoscopic-assisted resection of distal transverse colon and proximal left colon with mobilization of splenic flexure, primary anastomosis, extensive lysis of adhesions, resection of right colon and terminal ileum with ileocolonic anastomosis and repair of incisional hernia, and mobilization of splenic flexure on 10/11/2016. 2. Venous Doppler ultrasound of the right lower extremity on 10/22/2016. 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 Proximal right colon, resected portion - tubulovillous adenoma - 8 mm size, negative for high-grade dysplasia. Two small polypoid mucosal lesions with benign submucosal lymphoid aggregates, unremarkable vermiform appendix, nine benign lymph nodes. MEDICATIONS: Albuterol 0.63 mg via inhaler three times a day as needed, Xanax 0.5 mg at bedtime as needed, Eliquis 5 mg twice a day, Nexium 40 mg at bedtime, Breo Ellipta one puff via inhaler daily, NovoLog injection insulin as instructed, Lantus 50 units subcutaneously daily, Zestril 5 mg daily, Roxicodone 15 mg every eight hours as needed, Percocet one tablet every eight hours as needed, Crestor 10 mg at bedtime, Aldactone 25 mg twice a day, and Demadex 50 mg daily. CONDITION AT DISCHARGE: Stable. DISPOSITION: The patient was discharged home to be followed by home health care on an 1800- calorie diabetic diet with activities as instructed. She would follow up with me on 11/05/2016. HOSPITAL COURSE: This is a 66-year-old female who was recently found to be anemic. She was found to have a large mass in the proximal ascending colon. This was an ulcerated partly obstructing mass in the proximal ascending colon. Although the biopsy showed this to be tubulovillous adenoma, it was suspicious endoscopically for malignancy. She was also found to have a 2 cm polyp in the cecum and two sessile polyps that were 8 to 10 mm in size, just Discharge Summary [facility] [address] [id number] [place]. [address] NAME: EDILMA BETTS : 46 STATUS : DIS IN PAT#: [id number] AGE: 66 ADM/REG DATE : 10/11/16 MR#: [id number] REPORT SERV DATE: 11/02/16 DICTATED BY: ALEXANDRE VALDEZ III DATE: 11/01/16 REPORT STATUS : Draft TRANSCRIBED BY: MODJasmina DATE: 11/01/16 proximal to the cecum. Treatment options were discussed and it was elected to proceed with surgical intervention. She was admitted to the hospital for further evaluation and treatment. Upon admission, she was taken to the operating room where she underwent the above-mentioned procedure. She tolerated this well, and there were no complications. Postoperatively, she was seen by Dr. Mook Shin. She had been extubated postoperatively and placed on BiPAP. She does have a history of COPD and home oxygen dependent. She was transferred to the ICU. She was not on vasopressors. He had been asked to assist in management of her COPD. Chest x-ray showed some venous congestion with bibasilar atelectasis and a tiny amount of pleural fluid. There were no acute infiltrates. Creatinine level was 1.7. ABG was going to be checked to ensure that the patient was not retaining CO2. If the ABG looked okay, we would take her off BiPAP and just let her sleep with this that evening. Her home bronchodilators were resumed. There was no evidence of acute exacerbation at this time. On postop day #1, the chest x-ray showed some improvement. She was alert and comfortable. Her temperature was 101. She had decreased breath sounds. The Shaver catheter was going to be removed. On postop day #2, she continued to have decreased breath sounds in the lung bases. NG tube was in place with gravity drainage. Eliquis was resumed. She refused CPAP the previous evening secondary to anxiety. She was evaluated by Physical Therapy. On 10/14/2016, she was very dyspneic. She had a productive cough. With heavy secretions, NG tube was removed. She was going to be started on sips of clear liquids. Chest x-ray was requested. She had less dyspnea. She was progressing well. Clear liquids were continued. Acute kidney injury was resolving. Creatinine level was 1.30. She was started on full liquids. On 10/17/2016, she continued to improve. She was tolerating full liquids well. She was afebrile. She was transferred to the floor. Shaver catheter was removed. She complained of some pain in the right hip. Bronchodilators were continued. On 10/19/2016, she had some hypotension, treated with fluids. She was tolerating her diet. She was having bowel movements. We encouraged her to increase her activity. White count was 14.5. On 10/20/2016, her T-max was 100.3. She did complain of pain that was not controlled. She takes three oxycodones per day at home. She had a decreased inspiratory effort. She was started on antibiotics for questionable urinary tract infection. The next day, discharge planning was performed. She did have some nausea. She was making slow improvement. White count was 13.3. On 10/22/2016, she still complained of some pain in the right hip and leg. Venous Doppler ultrasound of the right lower extremity was performed and was negative. She was eating well and ambulating well. Discharge instructions were given. Due to her improved and stable condition, she was discharged home to be followed by home health care with the above-stated instructions. Information collected by: Tyalor Dey I submit the above information as my discharge summary. ALLEN/NIC Alexandre Valdez III, M.D. Discharge Summary [place] [id number] [facility] [address]. [address] NAME: EDILMA BETTS : 48 STATUS : DIS IN PAT#: [id number] AGE: 66 ADM/REG DATE : 10/11/16 MR#: [id number] REPORT SERV DATE: 11/02/16 DICTATED BY: ALEXANDRE VALDEZ III DATE: 11/01/16 REPORT STATUS : Draft TRANSCRIBED BY: NIC DATE: 11/01/16 / [id number] CC: Jany Richter III, M.D.
[~2016-10-11 06:05] MED LIST changes: +ALBUTEROL0.63 MG/3 INH
[2016-10-11 15:08] LABS: BE (BASE EXCESS) -3.1 MEQ/L (0 +/- 2.5); CARBOXYHEMOGLOBIN 0.8 % (0-3); HCO3 (ACTUAL BICARBONATE) 22.7 MEQ/L (23-27); HEMOBLOGIN CONTENT 10.4 G/DL (12-16); INSTRUMENT SERIAL # 8083; METHEMOGLOBIN 0.1 % (0-3); O2 CONTENT 14.3 VOL% (18-24); PCO2 (CO2 TENSION) 44 MMHG (35-45); PO2 (O2 TENSION) 106 MMHG (79-93); SAMPLE Arterial; pH 7.33 (7.37-7.43)
[2016-10-12 01:18] LABS: BUN (BLOOD UREA NITROGEN) 20 MG/DL (6-23); CALCIUM, SERUM 9.7 MG/DL (8.5-10.4); CHLORIDE, SERUM 107 MMOL/L (96-112); CO2 (CARBON DIOXIDE) 24 MMOL/L (24-34); CREATININE 1.28 MG/DL (0.55-1.02); GFR AFRICAN AMERICAN 50 ML/MIN (>=60); GFR NON AFRICAN AMERICAN 43 ML/MIN (>=60); GLUCOSE, SERUM 155 MG/DL (60-99); POTASSIUM, SERUM 5.5 MMOL/L (3.5-5.3); SODIUM, SERUM 139 MMOL/L (135-148)
[2016-10-12 04:53] LABS: BASOPHILS 0.1 %; BASOPHILS ABSOLUTE 0.01 10/3/uL (0.0-0.16); EOSINOPHILS 0 %; HEMATOCRIT 29.4 % (36.0-48.0); HEMOGLOBIN 9.3 g/dL (12.0-16.0); IMMATURE GRANULOCYTES 0.4 %; IMMATURE GRANULOCYTES ABSOLUTE 0.06 10/3/uL (0.0-0.11); LYMPHOCYTES 6.6 %; LYMPHOCYTES ABSOLUTE 0.99 10/3/uL (0.67-4.30); MEAN CORPUS HGB CONC 31.6 g/dL (32.0-36.0); MEAN CORPUSCULAR VOLUME 75.8 fL (80-100); MONOCYTES 14.9 %; MONOCYTES ABSOLUTE 2.22 10/3/uL (0.21-1.20); NEUTROPHILS ABSOLUTE 11.61 10/3/uL (2.02-8.40); PLATELET COUNT 174 10/3/uL (150-400); RBC DISTRIBUTION WIDTH 19.9 % (12.0-16.0); RED CELL COUNT 3.88 10/6/uL (4.0-5.6)
[2016-10-12 04:58] LABS: MANUAL DIFF NO %; WHITE BLOOD CELLS 14.9 10/3/uL (4.5-10.5)
[2016-10-12 05:07] LABS: BUN (BLOOD UREA NITROGEN) 19 MG/DL (6-23); CALCIUM, SERUM 9.6 MG/DL (8.5-10.4); CHLORIDE, SERUM 107 MMOL/L (96-112); CO2 (CARBON DIOXIDE) 24 MMOL/L (24-34); CREATININE 1.38 MG/DL (0.55-1.02); GFR AFRICAN AMERICAN 45 ML/MIN (>=60); GFR NON AFRICAN AMERICAN 39 ML/MIN (>=60); GLUCOSE, SERUM 165 MG/DL (60-99); POTASSIUM, SERUM 5.2 MMOL/L (3.5-5.3); SODIUM, SERUM 139 MMOL/L (135-148)
[2016-10-12 11:02] LABS: % IRON SAT 4 % (20-50); IRON BINDING CAPACITY 242 MCG/DL (225-410); IRON, SERUM 9 MCG/DL (35-150); PHOSPHORUS, SERUM 1.8 MG/DL (2.5-4.5)
[2016-10-13 02:55] LABS: BASOPHILS 0.2 %; BASOPHILS ABSOLUTE 0.03 10/3/uL (0.0-0.16); EOSINOPHILS 0.1 %; EOSINOPHILS ABSOLUTE 0.01 10/3/uL (0.0-0.53); HEMATOCRIT 28.2 % (36.0-48.0); IMMATURE GRANULOCYTES 0.3 %; IMMATURE GRANULOCYTES ABSOLUTE 0.06 10/3/uL (0.0-0.11); LYMPHOCYTES 8.9 %; LYMPHOCYTES ABSOLUTE 1.59 10/3/uL (0.67-4.30); MEAN CORPUS HGB CONC 31.9 g/dL (32.0-36.0); MEAN CORPUSCULAR HEMOGLOB 24.6 pg (26.0-34.0); MEAN PLATELET VOLUME 10.7 fL (9.2-13.0); MONOCYTES 12.3 %; MONOCYTES ABSOLUTE 2.19 10/3/uL (0.21-1.20); NEUTROPHILS 78.2 %; NEUTROPHILS ABSOLUTE 13.98 10/3/uL (2.02-8.40); PLATELET COUNT 153 10/3/uL (150-400); RBC DISTRIBUTION WIDTH 19.8 % (12.0-16.0); RED CELL COUNT 3.66 10/6/uL (4.0-5.6); WHITE BLOOD CELLS 17.9 10/3/uL (4.5-10.5)
[2016-10-13 03:00] LABS: MANUAL DIFF NO %
[2016-10-13 03:14] LABS: CALCIUM, SERUM 10.1 MG/DL (8.5-10.4); CHLORIDE, SERUM 108 MMOL/L (96-112); CO2 (CARBON DIOXIDE) 26 MMOL/L (24-34); CREATININE 1.08 MG/DL (0.55-1.02); GFR AFRICAN AMERICAN 61 ML/MIN (>=60); GFR NON AFRICAN AMERICAN 53 ML/MIN (>=60); GLUCOSE, SERUM 171 MG/DL (60-99); PHOSPHORUS, SERUM 1.7 MG/DL (2.5-4.5); POTASSIUM, SERUM 4.6 MMOL/L (3.5-5.3); SODIUM, SERUM 141 MMOL/L (135-148)
[2016-10-13 03:16] LABS: BUN (BLOOD UREA NITROGEN) 14 MG/DL (6-23)
[2016-10-13 03:20] LABS: PLATELET ESTIMATE ADQ (ADEQUATE)
[2016-10-13 03:22] LABS: ROULEAUX FORMATION 1+
[2016-10-13 05:42] LABS: ASCORBIC ACID (UR NOT ORDER) NEG (NEG); BILIRUBIN, URINE NEGATIVE (NEG); KETONE, URINE NEGATIVE (NEG); LEUKOCYTE ESTERASE(NOT OR TRACE (NEG); WBC (NOT ORDERED) (RFLEX) < 1 (0-5)
[2016-10-14 04:49] LABS: BASOPHILS 0.1 %; BASOPHILS ABSOLUTE 0.01 10/3/uL (0.0-0.16); EOSINOPHILS 0 %; HEMATOCRIT 28.8 % (36.0-48.0); IMMATURE GRANULOCYTES 0.3 %; IMMATURE GRANULOCYTES ABSOLUTE 0.05 10/3/uL (0.0-0.11); LYMPHOCYTES 7.8 %; LYMPHOCYTES ABSOLUTE 1.41 10/3/uL (0.67-4.30); MEAN CORPUS HGB CONC 31.3 g/dL (32.0-36.0); MEAN CORPUSCULAR HEMOGLOB 24.3 pg (26.0-34.0); MEAN CORPUSCULAR VOLUME 77.6 fL (80-100); MEAN PLATELET VOLUME 10.7 fL (9.2-13.0); MONOCYTES 12.9 %; MONOCYTES ABSOLUTE 2.32 10/3/uL (0.21-1.20); NEUTROPHILS 78.9 %; NEUTROPHILS ABSOLUTE 14.19 10/3/uL (2.02-8.40); PLATELET COUNT 144 10/3/uL (150-400); RBC DISTRIBUTION WIDTH 20.1 % (12.0-16.0); RED CELL COUNT 3.71 10/6/uL (4.0-5.6)
[2016-10-14 04:50] LABS: MANUAL DIFF NO %
[2016-10-14 05:09] LABS: BUN (BLOOD UREA NITROGEN) 13 MG/DL (6-23); CHLORIDE, SERUM 109 MMOL/L (96-112); CREATININE 1.02 MG/DL (0.55-1.02); GFR AFRICAN AMERICAN 65 ML/MIN (>=60); GFR NON AFRICAN AMERICAN 56 ML/MIN (>=60); GLUCOSE, SERUM 149 MG/DL (60-99); PHOSPHORUS, SERUM 2.2 MG/DL (2.5-4.5); POTASSIUM, SERUM 4.6 MMOL/L (3.5-5.3); SODIUM, SERUM 139 MMOL/L (135-148)
[2016-10-14 05:13] LABS: CALCIUM, SERUM 11.1 MG/DL (8.5-10.4); CO2 (CARBON DIOXIDE) 21 MMOL/L (24-34)
[2016-10-14 05:19] LABS: ANISOCYTOSIS 1+ (5-10/OIF) (0-5/OIF); HYPOCHROMIA 1+ (3-10/OIF) (0-2/OIF); PLATELET ESTIMATE SLT DEC (ADEQUATE)
[2016-10-15 04:32] LABS: BASOPHILS 0.1 %; BASOPHILS ABSOLUTE 0.02 10/3/uL (0.0-0.16); EOSINOPHILS 0.7 %; EOSINOPHILS ABSOLUTE 0.09 10/3/uL (0.0-0.53); HEMATOCRIT 26.7 % (36.0-48.0); HEMOGLOBIN 8.5 g/dL (12.0-16.0); IMMATURE GRANULOCYTES 0.3 %; IMMATURE GRANULOCYTES ABSOLUTE 0.04 10/3/uL (0.0-0.11); LYMPHOCYTES 13.8 %; LYMPHOCYTES ABSOLUTE 1.89 10/3/uL (0.67-4.30); MEAN CORPUS HGB CONC 31.8 g/dL (32.0-36.0); MEAN CORPUSCULAR HEMOGLOB 24.2 pg (26.0-34.0); MEAN CORPUSCULAR VOLUME 76.1 fL (80-100); MEAN PLATELET VOLUME 10.3 fL (9.2-13.0); MONOCYTES 12.9 %; MONOCYTES ABSOLUTE 1.77 10/3/uL (0.21-1.20); NEUTROPHILS 72.2 %; NEUTROPHILS ABSOLUTE 9.91 10/3/uL (2.02-8.40); PLATELET COUNT 164 10/3/uL (150-400); RBC DISTRIBUTION WIDTH 19.8 % (12.0-16.0); RED CELL COUNT 3.51 10/6/uL (4.0-5.6); WHITE BLOOD CELLS 13.7 10/3/uL (4.5-10.5)
[2016-10-15 04:33] LABS: MANUAL DIFF NO %
[2016-10-15 04:53] LABS: CALCIUM, SERUM 11.5 MG/DL (8.5-10.4); CHLORIDE, SERUM 107 MMOL/L (96-112); GFR AFRICAN AMERICAN 49 ML/MIN (>=60); GFR NON AFRICAN AMERICAN 42 ML/MIN (>=60); POTASSIUM, SERUM 3.9 MMOL/L (3.5-5.3); SODIUM, SERUM 141 MMOL/L (135-148)
[2016-10-15 04:56] LABS: BUN (BLOOD UREA NITROGEN) 22 MG/DL (6-23); CO2 (CARBON DIOXIDE) 26 MMOL/L (24-34); GLUCOSE, SERUM 117 MG/DL (60-99)
[2016-10-15 05:17] LABS: ANISOCYTOSIS 1+ (5-10/OIF) (0-5/OIF); PLATELET ESTIMATE ADQ (ADEQUATE)
[2016-10-15 05:18] LABS: GIANT PLATELET OCC
[2016-10-16 04:31] LABS: BASOPHILS 0.2 %; BASOPHILS ABSOLUTE 0.02 10/3/uL (0.0-0.16); EOSINOPHILS 3.1 %; EOSINOPHILS ABSOLUTE 0.32 10/3/uL (0.0-0.53); HEMATOCRIT 24.9 % (36.0-48.0); IMMATURE GRANULOCYTES 0.6 %; IMMATURE GRANULOCYTES ABSOLUTE 0.06 10/3/uL (0.0-0.11); LYMPHOCYTES 18.1 %; LYMPHOCYTES ABSOLUTE 1.86 10/3/uL (0.67-4.30); MEAN CORPUS HGB CONC 32.1 g/dL (32.0-36.0); MEAN CORPUSCULAR HEMOGLOB 24.5 pg (26.0-34.0); MEAN CORPUSCULAR VOLUME 76.1 fL (80-100); MEAN PLATELET VOLUME 10.4 fL (9.2-13.0); MONOCYTES 12.6 %; MONOCYTES ABSOLUTE 1.29 10/3/uL (0.21-1.20); NEUTROPHILS 65.4 %; NEUTROPHILS ABSOLUTE 6.71 10/3/uL (2.02-8.40); PLATELET COUNT 185 10/3/uL (150-400); RBC DISTRIBUTION WIDTH 19.6 % (12.0-16.0); RED CELL COUNT 3.27 10/6/uL (4.0-5.6); WHITE BLOOD CELLS 10.3 10/3/uL (4.5-10.5)
[2016-10-16 04:44] LABS: BUN (BLOOD UREA NITROGEN) 19 MG/DL (6-23); CALCIUM, SERUM 11.3 MG/DL (8.5-10.4); CHLORIDE, SERUM 109 MMOL/L (96-112); CO2 (CARBON DIOXIDE) 27 MMOL/L (24-34); CREATININE 1.11 MG/DL (0.55-1.02); GFR AFRICAN AMERICAN 59 ML/MIN (>=60); GFR NON AFRICAN AMERICAN 51 ML/MIN (>=60); GLUCOSE, SERUM 134 MG/DL (60-99); POTASSIUM, SERUM 3.9 MMOL/L (3.5-5.3); SODIUM, SERUM 142 MMOL/L (135-148)
[2016-10-16 04:49] LABS: MANUAL DIFF NO %
[2016-10-17 04:38] LABS: BASOPHILS 0.2 %; BASOPHILS ABSOLUTE 0.02 10/3/uL (0.0-0.16); EOSINOPHILS 2.9 %; EOSINOPHILS ABSOLUTE 0.29 10/3/uL (0.0-0.53); HEMATOCRIT 26.9 % (36.0-48.0); HEMOGLOBIN 8.5 g/dL (12.0-16.0); IMMATURE GRANULOCYTES 0.6 %; IMMATURE GRANULOCYTES ABSOLUTE 0.06 10/3/uL (0.0-0.11); LYMPHOCYTES 17.9 %; LYMPHOCYTES ABSOLUTE 1.78 10/3/uL (0.67-4.30); MEAN CORPUS HGB CONC 31.6 g/dL (32.0-36.0); MEAN PLATELET VOLUME 10.5 fL (9.2-13.0); MONOCYTES 14.4 %; MONOCYTES ABSOLUTE 1.43 10/3/uL (0.21-1.20); NEUTROPHILS ABSOLUTE 6.36 10/3/uL (2.02-8.40); PLATELET COUNT 205 10/3/uL (150-400); RBC DISTRIBUTION WIDTH 19.4 % (12.0-16.0); RED CELL COUNT 3.54 10/6/uL (4.0-5.6); WHITE BLOOD CELLS 9.9 10/3/uL (4.5-10.5)
[2016-10-17 04:39] LABS: MANUAL DIFF NO %
[2016-10-17 04:53] LABS: BUN (BLOOD UREA NITROGEN) 16 MG/DL (6-23); CALCIUM, SERUM 11.1 MG/DL (8.5-10.4); CHLORIDE, SERUM 105 MMOL/L (96-112); CO2 (CARBON DIOXIDE) 29 MMOL/L (24-34); CREATININE 0.82 MG/DL (0.55-1.02); GFR AFRICAN AMERICAN 85 ML/MIN (>=60); GFR NON AFRICAN AMERICAN 74 ML/MIN (>=60); GLUCOSE, SERUM 125 MG/DL (60-99); POTASSIUM, SERUM 3.8 MMOL/L (3.5-5.3); SODIUM, SERUM 141 MMOL/L (135-148)
[2016-10-17 17:27] LABS: POTASSIUM, SERUM 4.1 MMOL/L (3.5-5.3)
[2016-10-18 04:52] LABS: BASOPHILS 0.4 %; BASOPHILS ABSOLUTE 0.05 10/3/uL (0.0-0.16); EOSINOPHILS 2.2 %; EOSINOPHILS ABSOLUTE 0.25 10/3/uL (0.0-0.53); HEMATOCRIT 25.9 % (36.0-48.0); HEMOGLOBIN 8.2 g/dL (12.0-16.0); IMMATURE GRANULOCYTES 0.4 %; IMMATURE GRANULOCYTES ABSOLUTE 0.04 10/3/uL (0.0-0.11); LYMPHOCYTES 14.9 %; LYMPHOCYTES ABSOLUTE 1.67 10/3/uL (0.67-4.30); MEAN CORPUS HGB CONC 31.7 g/dL (32.0-36.0); MEAN CORPUSCULAR HEMOGLOB 24.4 pg (26.0-34.0); MEAN CORPUSCULAR VOLUME 77.1 fL (80-100); MEAN PLATELET VOLUME 9.9 fL (9.2-13.0); MONOCYTES 13.5 %; MONOCYTES ABSOLUTE 1.51 10/3/uL (0.21-1.20); NEUTROPHILS 68.6 %; NEUTROPHILS ABSOLUTE 7.66 10/3/uL (2.02-8.40); PLATELET COUNT 217 10/3/uL (150-400); RED CELL COUNT 3.36 10/6/uL (4.0-5.6); WHITE BLOOD CELLS 11.2 10/3/uL (4.5-10.5)
[2016-10-18 04:56] LABS: MANUAL DIFF NO %
[2016-10-18 05:10] LABS: BUN (BLOOD UREA NITROGEN) 15 MG/DL (6-23); CALCIUM, SERUM 10.9 MG/DL (8.5-10.4); CHLORIDE, SERUM 103 MMOL/L (96-112); CO2 (CARBON DIOXIDE) 28 MMOL/L (24-34); CREATININE 0.89 MG/DL (0.55-1.02); GFR AFRICAN AMERICAN 77 ML/MIN (>=60); GFR NON AFRICAN AMERICAN 67 ML/MIN (>=60); POTASSIUM, SERUM 3.7 MMOL/L (3.5-5.3); SODIUM, SERUM 139 MMOL/L (135-148)
[2016-10-18 05:27] LABS: GLUCOSE, SERUM 154 MG/DL (60-99)
[2016-10-19 05:49] LABS: BASOPHILS 0.3 %; BASOPHILS ABSOLUTE 0.04 10/3/uL (0.0-0.16); EOSINOPHILS 1.7 %; EOSINOPHILS ABSOLUTE 0.24 10/3/uL (0.0-0.53); HEMATOCRIT 29.5 % (36.0-48.0); HEMOGLOBIN 9.1 g/dL (12.0-16.0); IMMATURE GRANULOCYTES 0.4 %; IMMATURE GRANULOCYTES ABSOLUTE 0.06 10/3/uL (0.0-0.11); LYMPHOCYTES 15.3 %; LYMPHOCYTES ABSOLUTE 2.22 10/3/uL (0.67-4.30); MANUAL DIFF NO %; MEAN CORPUS HGB CONC 30.8 g/dL (32.0-36.0); MEAN CORPUSCULAR HEMOGLOB 24.2 pg (26.0-34.0); MEAN CORPUSCULAR VOLUME 78.5 fL (80-100); MEAN PLATELET VOLUME 10.3 fL (9.2-13.0); MONOCYTES 13.4 %; MONOCYTES ABSOLUTE 1.94 10/3/uL (0.21-1.20); NEUTROPHILS 68.9 %; NEUTROPHILS ABSOLUTE 9.97 10/3/uL (2.02-8.40); PLATELET COUNT 233 10/3/uL (150-400); RED CELL COUNT 3.76 10/6/uL (4.0-5.6); WHITE BLOOD CELLS 14.5 10/3/uL (4.5-10.5)
[2016-10-19 05:55] LABS: BUN (BLOOD UREA NITROGEN) 18 MG/DL (6-23); CALCIUM, SERUM 10.9 MG/DL (8.5-10.4); CHLORIDE, SERUM 105 MMOL/L (96-112); CO2 (CARBON DIOXIDE) 28 MMOL/L (24-34); CREATININE 1.15 MG/DL (0.55-1.02); GFR AFRICAN AMERICAN 57 ML/MIN (>=60); GFR NON AFRICAN AMERICAN 49 ML/MIN (>=60); GLUCOSE, SERUM 130 MG/DL (60-99); POTASSIUM, SERUM 3.9 MMOL/L (3.5-5.3); SODIUM, SERUM 142 MMOL/L (135-148)
[2016-10-19 20:05] LABS: ASCORBIC ACID (UR NOT ORDER) NEG (NEG); BILIRUBIN, URINE NEGATIVE (NEG); KETONE, URINE NEGATIVE (NEG); LEUKOCYTE ESTERASE(NOT OR LARGE (NEG); WBC (NOT ORDERED) (RFLEX) 18 (0-5)
[2016-10-20 06:21] LABS: BASOPHILS 0.3 %; BASOPHILS ABSOLUTE 0.04 10/3/uL (0.0-0.16); EOSINOPHILS 1.4 %; EOSINOPHILS ABSOLUTE 0.16 10/3/uL (0.0-0.53); HEMATOCRIT 26.7 % (36.0-48.0); HEMOGLOBIN 8.3 g/dL (12.0-16.0); IMMATURE GRANULOCYTES 0.4 %; IMMATURE GRANULOCYTES ABSOLUTE 0.05 10/3/uL (0.0-0.11); LYMPHOCYTES 14.5 %; LYMPHOCYTES ABSOLUTE 1.71 10/3/uL (0.67-4.30); MEAN CORPUS HGB CONC 31.1 g/dL (32.0-36.0); MEAN CORPUSCULAR HEMOGLOB 24.3 pg (26.0-34.0); MEAN CORPUSCULAR VOLUME 78.3 fL (80-100); MEAN PLATELET VOLUME 10.1 fL (9.2-13.0); MONOCYTES 12.6 %; MONOCYTES ABSOLUTE 1.49 10/3/uL (0.21-1.20); NEUTROPHILS 70.8 %; NEUTROPHILS ABSOLUTE 8.34 10/3/uL (2.02-8.40); PLATELET COUNT 234 10/3/uL (150-400); RBC DISTRIBUTION WIDTH 20.5 % (12.0-16.0); RED CELL COUNT 3.41 10/6/uL (4.0-5.6); WHITE BLOOD CELLS 11.8 10/3/uL (4.5-10.5)
[2016-10-20 06:22] LABS: MANUAL DIFF NO %
[2016-10-20 06:31] LABS: BUN (BLOOD UREA NITROGEN) 17 MG/DL (6-23); CHLORIDE, SERUM 108 MMOL/L (96-112); CO2 (CARBON DIOXIDE) 27 MMOL/L (24-34); GFR AFRICAN AMERICAN 88 ML/MIN (>=60); GFR NON AFRICAN AMERICAN 76 ML/MIN (>=60); GLUCOSE, SERUM 127 MG/DL (60-99); POTASSIUM, SERUM 4.1 MMOL/L (3.5-5.3); SODIUM, SERUM 142 MMOL/L (135-148)
[2016-10-21 06:19] LABS: BASOPHILS 0.1 %; BASOPHILS ABSOLUTE 0.01 10/3/uL (0.0-0.16); EOSINOPHILS 1.3 %; EOSINOPHILS ABSOLUTE 0.17 10/3/uL (0.0-0.53); HEMATOCRIT 24.9 % (36.0-48.0); IMMATURE GRANULOCYTES 0.3 %; IMMATURE GRANULOCYTES ABSOLUTE 0.04 10/3/uL (0.0-0.11); LYMPHOCYTES ABSOLUTE 1.59 10/3/uL (0.67-4.30); MEAN CORPUS HGB CONC 32.1 g/dL (32.0-36.0); MEAN CORPUSCULAR HEMOGLOB 24.8 pg (26.0-34.0); MEAN CORPUSCULAR VOLUME 77.1 fL (80-100); MEAN PLATELET VOLUME 10.1 fL (9.2-13.0); MONOCYTES 12.2 %; MONOCYTES ABSOLUTE 1.61 10/3/uL (0.21-1.20); NEUTROPHILS 74.1 %; NEUTROPHILS ABSOLUTE 9.83 10/3/uL (2.02-8.40); PLATELET COUNT 221 10/3/uL (150-400); RBC DISTRIBUTION WIDTH 20.4 % (12.0-16.0); RED CELL COUNT 3.23 10/6/uL (4.0-5.6); WHITE BLOOD CELLS 13.3 10/3/uL (4.5-10.5)
[2016-10-21 06:21] LABS: MANUAL DIFF NO %
[2016-10-21 06:43] LABS: BUN (BLOOD UREA NITROGEN) 18 MG/DL (6-23); CALCIUM, SERUM 10.8 MG/DL (8.5-10.4); CHLORIDE, SERUM 106 MMOL/L (96-112); CO2 (CARBON DIOXIDE) 27 MMOL/L (24-34); CREATININE 1.04 MG/DL (0.55-1.02); GFR AFRICAN AMERICAN 64 ML/MIN (>=60); GFR NON AFRICAN AMERICAN 55 ML/MIN (>=60); GLUCOSE, SERUM 127 MG/DL (60-99); POTASSIUM, SERUM 4.3 MMOL/L (3.5-5.3); SODIUM, SERUM 142 MMOL/L (135-148)
[2016-10-21 07:38] LABS: PROCALCITONIN 0.24 ng/mL (<0.5)
[2016-10-22 06:07] LABS: BASOPHILS 0 %; IMMATURE GRANULOCYTES 0.3 %; IMMATURE GRANULOCYTES ABSOLUTE 0.03 10/3/uL (0.0-0.11); LYMPHOCYTES 13.3 %; LYMPHOCYTES ABSOLUTE 1.35 10/3/uL (0.67-4.30); MEAN CORPUSCULAR VOLUME 78.1 fL (80-100); MEAN PLATELET VOLUME 10.1 fL (9.2-13.0); MONOCYTES ABSOLUTE 0.81 10/3/uL (0.21-1.20); NEUTROPHILS 77.4 %; NEUTROPHILS ABSOLUTE 7.89 10/3/uL (2.02-8.40); PLATELET COUNT 201 10/3/uL (150-400); RBC DISTRIBUTION WIDTH 20.2 % (12.0-16.0); WHITE BLOOD CELLS 10.2 10/3/uL (4.5-10.5)
[2016-10-22 06:08] LABS: MANUAL DIFF NO %
[2016-10-22 06:24] LABS: BUN (BLOOD UREA NITROGEN) 18 MG/DL (6-23); CALCIUM, SERUM 10.6 MG/DL (8.5-10.4); CHLORIDE, SERUM 106 MMOL/L (96-112); CO2 (CARBON DIOXIDE) 27 MMOL/L (24-34); CREATININE 1.17 MG/DL (0.55-1.02); GFR AFRICAN AMERICAN 55 ML/MIN (>=60); GFR NON AFRICAN AMERICAN 48 ML/MIN (>=60); GLUCOSE, SERUM 116 MG/DL (60-99); POTASSIUM, SERUM 4.2 MMOL/L (3.5-5.3); SODIUM, SERUM 140 MMOL/L (135-148)
[2016-10-22] MEDS ORDERED: PERCOCET 7.5/321 TAB PO (10:15)
== END 2016-10-22 19:30 | disposition home health service (06) | DRG 329 ==
LOC: SDC/OF 06:05 → PACU 11:34 → MIC 12:48 → 5SO 10-18 20:18
PROVIDERS: Internal Medicine Critical Care Medicine; Surgery
PROC: 0DBL0ZZ Excision of Transverse Colon, Open Approach (ICD-10-PCS; 2016-10-11)
PROC: 0DBF0ZZ Excision of Right Large Intestine, Open Approach (ICD-10-PCS; 2016-10-11)
PROC: 0DBG0ZZ Excision of Left Large Intestine, Open Approach (ICD-10-PCS; 2016-10-11)
PROC: 0WQF0ZZ Repair Abdominal Wall, Open Approach (ICD-10-PCS; 2016-10-11)
PROC: 3E0T3CZ (ICD-10-PCS; 2016-10-11)
PROC: 5A09457 Assistance with Respiratory Ventilation, 24-96 Consecutive Hours, Continuous Positive Airway Pressure (ICD-10-PCS; principal; 2016-10-11 07:45)
DX: C18.6 Malignant neoplasm of descending colon (principal); J96.21 Acute and chronic respiratory failure with hypoxia; C77.2 Secondary and unspecified malignant neoplasm of intra-abdominal lymph nodes; N39.0 Urinary tract infection, site not specified; Z68.41 Body mass index [BMI] 40.0-44.9, adult; I50.22 Chronic systolic (congestive) heart failure; Z99.81 Dependence on supplemental oxygen; D12.0 Benign neoplasm of cecum; E66.01 Morbid (severe) obesity due to excess calories; D12.2 Benign neoplasm of ascending colon; I10 Essential (primary) hypertension; J44.9 Chronic obstructive pulmonary disease, unspecified; K43.2 Incisional hernia without obstruction or gangrene; E11.9 Type 2 diabetes mellitus without complications; F17.200 Nicotine dependence, unspecified, uncomplicated; E03.9 Hypothyroidism, unspecified; K21.9 Gastro-esophageal reflux disease without esophagitis; F41.9 Anxiety disorder, unspecified; Z79.01 Long term (current) use of anticoagulants; Z88.2 Allergy status to sulfonamides; Z88.8 Allergy status to other drugs, medicaments and biological substances; Z79.899 Other long term (current) drug therapy; Z79.4 Long term (current) use of insulin; Z86.718 Personal history of other venous thrombosis and embolism
CPT/HCPCS: 36415; 36600; 71010; 71020; 73501-RT; 80048; 80053; 81001; 82378; 82805; 82962; 83540; 83550; 83735; 84100; 84132; 84145; 85025; 85610; 85730; 86850; 86900; 86901; 87077; 87086; 87186; 87641; 88309; 88341; 88342; 93005; 93971; 94640; 94660; 94667; 94668; 97110-GP; 97116-GP; 97162-GP; 97530-GP; A9270-GY; C9113; G0257; G8978-CL-GP; G8979-CJ-GP; J0690; J1170; J2250; J2370; J2405; J2550; J2710; J2765; J2916; J3010; P9045

== ENCOUNTER 2016-10-26 18:19 | Inpatient (IN) | payer MEDICARE, OTHER ==
[2016-10-25 15:59] LABS: BASOPHILS 0.1 %; BASOPHILS ABSOLUTE 0.01 10/3/uL (0.0-0.16); EOSINOPHILS 0.9 %; HEMOGLOBIN 8.7 g/dL (12.0-16.0); IMMATURE GRANULOCYTES 0.4 %; IMMATURE GRANULOCYTES ABSOLUTE 0.04 10/3/uL (0.0-0.11); LYMPHOCYTES 13.2 %; MEAN CORPUSCULAR VOLUME 77.6 fL (80-100); MEAN PLATELET VOLUME 11.2 fL (9.2-13.0); MONOCYTES 14.5 %; MONOCYTES ABSOLUTE 1.54 10/3/uL (0.21-1.20); NEUTROPHILS 70.9 %; NEUTROPHILS ABSOLUTE 7.52 10/3/uL (2.02-8.40); PLATELET COUNT 250 10/3/uL (150-400); RBC DISTRIBUTION WIDTH 20.5 % (12.0-16.0); RED CELL COUNT 3.62 10/6/uL (4.0-5.6); WHITE BLOOD CELLS 10.6 10/3/uL (4.5-10.5)
[2016-10-25 16:00] LABS: HEMATOCRIT 28.1 % (36.0-48.0); MANUAL DIFF NO %
--- NOTE | ~2016-10-26 | CN ---
Consultation Report [facility] [address] [place]. [address] NAME: EDILMA BETTS : 46 STATUS : ADM Kalin PAT#: [id number] AGE: 66 ADM/REG DATE : 10/26/16 MR#: [id number] REPORT SERV DATE: 10/27/16 DICTATED BY: FELECIA GUERRERO DATE: 10/27/16 REPORT STATUS : Draft TRANSCRIBED BY: MODL DATE: 10/27/16 HOSPITALIST CONSULTATION DATE OF CONSULTATION: 10/27/2016 REASON FOR CONSULTATION: Medical management per Dr. Serrano. HPI: This is an awake, alert, and oriented, very pleasant, 66-year-old, female, who was admitted today to Dr. Aguayo for postoperative wound dehiscence. She presented to the ER today for multiple complaints that included swelling feet, trouble breathing, colon cancer with increased bleeding at her surgical site, and abdominal pain. Her vital signs on arrival were stable with a blood pressure of 127/58, heart rate of 94, oxygen saturation of 100% on 4 L, and respiration rate of 20. She was found to have wound dehiscence from her partial left colectomy and partial right colectomy for two separate neoplasms of the colon that was performed on 09/28/[address] Serrano. She was discharged from that hospital stay on 10/22/2016. At this time she reports a nonproductive cough with difficulty breathing, onset after her discharge. She also reports generalized pain at the surgical site, worse on the right and generalized abdominal tenderness. She does not have any other complaints at this time. She denies chest pain. She denies palpitations, nausea, and vomiting. The patient is oxygen dependent at home and uses 4 L nasal cannula as well as a CPAP machine every night. She reports her family will bring in the CPAP machine tomorrow. PAST MEDICAL HISTORY: Significant for 1. Oxygen-dependent COPD. 2. CHF. 3. Hypertension. 4. Insulin-dependent diabetes mellitus type 2. 5. GERD. 6. Hypothyroidism. 7. History of DVT. 8. Obesity. 9. Colon neoplasm. PAST SURGICAL HISTORY: Significant for 1. Partial left and partial right colectomy, 09/28/2016. 2. Hysterectomy. 3. Cholecystectomy. PCP: Narinder Goodwin M.D. She follows with Dr. 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 She has not seen a bowling or skating front desk clerk in several years and does not remember her previous bowling or skating front desk clerk's name. Consultation Report [address] [place]. [address] NAME: EDILMA BETTS : 46 STATUS : ADM Kalin PAT#: [id number] AGE: 66 ADM/REG DATE : 10/26/16 MR#: [id number] REPORT SERV DATE: 10/27/16 DICTATED BY: FELECIA GUERRERO DATE: 10/27/16 REPORT STATUS : Draft TRANSCRIBED BY: NIC DATE: 10/27/16 SOCIAL HISTORY: The patient is retired with a persistent use of tobacco. She smokes cigarettes half a pack a day for 30 years. She denies alcohol and illicit drug use. ALLERGIES: BETADINE, NSAIDS, SULFA, SPIRIVA, LEVEMIR. PAST FAMILY HISTORY: Mother had a history of diabetes with a CVA and is . Her father had also a history of diabetes and hypertension and he is . HOME MEDICATIONS: 1. DuoNeb inhaler 3 times daily p.r.n. shortness of breath. 2. Xanax 0.5 mg p.o. twice a day p.r.n. anxiety. 3. Eliquis 5 mg p.o. twice daily. 4. Artificial Tears 1 drop each eye 4 times daily p.r.n. 5. Nexium 40 mg p.o. daily p.r.n. GERD. 6. Breo Ellipta 200/25 mcg inhaler one puff inhaled every morning. 7. NovoLog 10 units subcutaneous before breakfast and supper daily. 8. NovoLog 12 units subcutaneous daily before lunch. 9. Lantus 50 units subcutaneous every morning. 10.Roxicodone 15 mg p.o. 3 times daily p.r.n. pain. 11.Potassium chloride 10 mEq 1 p.o. twice daily. 12.Crestor 10 mg p.o. at bedtime. 13.Senna 8.6 mg p.o. twice daily. 14.Aldactone 25 mg p.o. twice daily. Of note, patient was previously on lisinopril 5 mg p.o. daily and Demadex 50 mg p.o. every morning and she is currently holding those medications on order of her PCP for low blood pressures. She was also put on Levaquin 750 mg p.o. daily x5 days postoperatively which she is not taking at this time. REVIEW OF SYSTEMS: A complete 10-point review of systems was negative except as per HPI. PHYSICAL EXAMINATION: VITAL SIGNS: T 96.2, P 95, RR 20, BP 122/54, SpO2 96% on 4 L nasal cannula. GENERAL: Well-appearing, female, in no acute distress. NEURO: Awake, alert, and oriented x3 without focal deficit. HEENT: Normocephalic, atraumatic without lymphadenopathy. NECK: Supple. No JVD. LUNGS: Normal respiratory effort with crackles and wheezing in bilateral upper lung melchor. Crackles and diminished lung sounds in bilateral bases. CV: Regular rate and rhythm. S1, S2 auscultated without murmur, rub, gallop or click. ABDOMEN: Soft, round, tender to palpation at surgical site. Bowel sounds active in all quadrants. EXTREMITIES: Have normal distal pulses. No calf tenderness. Cap refill is within normal limits. Consultation Report [address] [place]. [address] NAME: EDILMA BETTS : 46 STATUS : ADM Kalin PAT#: [id number] AGE: 66 ADM/REG DATE : 10/26/16 MR#: [id number] REPORT SERV DATE: 10/27/16 DICTATED BY: FELECIA GUERRERO DATE: 10/27/16 REPORT STATUS : Draft TRANSCRIBED BY: NIC DATE: 10/27/16 PSYCH: Normal affect. SKIN: Clean, dry, and intact with mucous membranes pink and moist. Also noted dressing to right lower abdomen, clean, dry, and intact. Also noted decubitus on left buttock. LABS: Pending at time of dictation. PERTINENT IMAGING: EKG done in ER, 10/26/[address] Bledsoe, ER physician, showed sinus tach with PVCs at a rate of 102. Of note, her last ejection fraction was 65% noted in 2011 with no cardiology note since that time. ASSESSMENT AND PLAN: 1. Chronic obstructive pulmonary disease. This is chronic. She is currently on 4 L nasal cannula home oxygen and CPAP at night. We will pursue aggressive pulmonary toilet with home inhaler regimen, incentive spirometer, bronchodilator protocol. We will also monitor her fluid status and get a portable chest x-ray at this time for review by Dr. Will. 2. Congestive heart failure. As previously stated, her last cardiology visit was approximately 2011 with a documented EF of 65%. This could be a possible contributing factor to chronic obstructive pulmonary disease and feelings of difficulty breathing. At this time, we will continue her current medication regimen. We will get a portable chest x-ray. We will add BNP to a.m. labs and monitor her labs as well as her fluid status. Adjusting medications as necessary. 3. Type 2 insulin-dependent diabetes mellitus. This is chronic. Her last A1c was confirmed drawn the end of 08/15/2016. No value is documented. She is noted to be allergic to Levemir. We will continue her home insulin the NovoLog as well as the Lantus which was confirmed with pharmacy, was available. We will do Accu-Cheks before meals and at bedtime and ask to be called for blood glucose less than 80. At this time, prefer an ADA diet when it is okay with surgery and we will monitor her lab work. 4. Gastroesophageal reflux disease. This is also chronic and controlled on her Nexium. We will continue this home med and monitor her labs. 5. Hypertension. Again, this is chronic. We are currently holding Demadex and lisinopril per her PCP's recommendation due to low blood pressures at home. At this time, we will monitor vital signs. We will provide p.r.n. hydralazine for hypertensive coverage and continue her Aldactone. We will monitor her labs and adjust medications as needed. 6. Hypothyroid. This is chronic and patient reports her TSH and other thyroid levels were last checked approximately 3-4 years ago. She is not currently on medication for this problem. For this hospitalization, we will check her TSH and monitor her other labs. 7. History of deep vein thrombosis. This is chronic and she is currently on Eliquis for this. We will continue her home medications and monitor her labs. 8. Obesity. This is chronic. Prefer an 1800 calorie, ADA diet when okay with surgery. Would recommend frequent turning. Specialty bed was ordered by Dr. Serrano. 9. Wound, decubitus versus acute on chronic, possibly related to obesity as well as recent surgery and decreased mobility. We will ask Wound Care to evaluate her. Also agree with a specialty bed as ordered per the attending and would recommend frequent turns. 10.Postoperative abdominal surgery. As previously stated, patient did have a colectomy on Consultation Report [address] [place]. [address] NAME: EDILMA BETTS : 46 STATUS : ADM Kalin PAT#: [id number] AGE: 66 ADM/REG DATE : 10/26/16 MR#: [id number] REPORT SERV DATE: 10/27/16 DICTATED BY: FELECIA GUERRERO DATE: 10/27/16 REPORT STATUS : Draft TRANSCRIBED BY: MODL DATE: 10/27/16 09/28/2016 for colon neoplasm. We will defer management of this to the Primary Team. Thank you for this consult. We are pleased to follow this patient with you. This consult was completed through thorough review of [employer], old records, [employer], and current chart as well as thorough interview with the patient. [facility]/NIC Felecia Guerrero NP / [id number] CC: Jany Richter III, M.D.
--- NOTE | ~2016-10-26 | CN ---
Consultation Report [facility] [address] [place]. [address] NAME: YECENIA SANON : 46 STATUS : ADM IN PAT#: [id number] AGE: 66 ADM/REG DATE : 10/27/16 MR#: [id number] REPORT SERV DATE: 10/31/16 DICTATED BY: EDYTA DOMINIQUE DATE: 10/30/16 REPORT STATUS : Draft TRANSCRIBED BY: MODL DATE: 10/30/16 CONSULTATION DATE OF CONSULTATION: REASON FOR CONSULTATION: Colon cancer. HISTORY: Briefly, Ms. Yecenia Sanon is a very pleasant 66-year-old with multiple medical problems including status post recent transverse colon resection. She was found to have a 3.5 cm well-differentiated tumor. Her margins were negative but LVI was present. 0/2 lymph nodes were involved leaving her stage II colon cancer. Her CEA was only 4.2 at the time of diagnosis. Noncontrasted CT scans showed a small lung nodule that was slightly larger than back in 2005, but it was nonspecific and this is to be followed by her snap attacher, Dr. Velasco. She required readmission for a wound dehiscence given her morbid obesity. She now has a wound VAC in place and her hemoglobin is 7.7. She complains of some fatigue. She denies any prior history of anemia. PAST MEDICAL HISTORY: Significant for morbid obesity, chronic lung disease requiring home O2, sleep apnea, chronic systolic congestive heart failure, diabetes, and hypertension. REVIEW OF SYSTEMS: A 14-point review of systems was performed and negative except for as per HPI. Her new anemia led to her having a colonoscopy, which found the colon cancer. FAMILY HISTORY: She denies any family history of malignancy. SOCIAL HISTORY: She lives at home with her daughter. 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 PHYSICAL EXAMINATION: GENERAL: She is well developed, morbidly obese, in no acute distress. LUNGS: Fairly clear to auscultation, but inspirations are shallow. HEART: Regular rate and rhythm. ABDOMEN: Morbidly obese. She has a large pannus with a wound VAC drain in the midabdomen. EXTREMITIES: She has some swelling on her left foot consistent with gout. LABORATORY DATA: Her blood work again reveals a white count of 9.1, hemoglobin 7.7, platelet count of 215. Her creatinine has dropped down to 1.84. ASSESSMENT: 1. Stage II colon cancer. She appears to have a low-grade lesion that was completely resected with negative lymph nodes. While she has had LVI present, I did not think she would benefit from adjuvant chemotherapy given her other comorbidities. She would have difficulty with the 5-FU given her elevated creatinine. I would like to follow her instead with observation. She will need to continue to have the lung nodule followed Consultation Report [facility] [id number] [place]. [address] NAME: YECENIA SANON : 46 STATUS : ADM IN PAT#: [id number] AGE: 66 ADM/REG DATE : 10/27/16 MR#: [id number] REPORT SERV DATE: 10/31/16 DICTATED BY: EDYTA DOMINIQUE DATE: 10/30/16 REPORT STATUS : Draft TRANSCRIBED BY: NIC DATE: 10/30/[address] Velasco and I can help with her outpatient followup. 2. Iron deficiency anemia. We will go ahead and start her on oral iron. We will follow with you while she is in the hospital. Thank you very much for the consultation. [facility]/NIC Edyta Dominique M.D. / [id number] CC: Jany Richter III, M.D.
--- NOTE | ~2016-10-26 | HP ---
History And Physical [facility] [id number] [place]. [address] NAME: EDILMA BETTS : 46 STATUS : DIS IN PAT#: [id number] AGE: 66 ADM/REG DATE : 10/27/16 MR#: [id number] REPORT SERV DATE: 10/29/16 DICTATED BY: ALEXANDRE VALDEZ III DATE: 10/28/16 REPORT STATUS : Draft TRANSCRIBED BY: MODL DATE: 10/28/16 DATE OF ADMISSION: 10/27/2016 HISTORY OF PRESENT ILLNESS: This 66-year-old female was admitted to the hospital emergently with evidence for acute renal insufficiency, and superficial wound dehiscence. The patient has a history of morbid obesity. She is status post right colectomy and distal transverse colectomy for benign polyp of the right colon and a malignant cancer of the distal transverse colon. The patient's postoperative recovery was prolonged secondary to her severe obesity and chronic lung disease. The patient was discharged home in good condition. At the time of discharge, she was tolerating diet well with normal bowel function. The patient states that over the last several days, she has had generalized weakness and fatigue. She presented to the emergency room and was found to have evidence for acute renal insufficiency and superficial dehiscence for abdominal incision. PAST MEDICAL HISTORY: 1. History of morbid obesity. 2. History of chronic lung disease requiring chronic oxygen. 3. Obstructive sleep apnea. 4. Chronic systolic congestive heart failure. 5. Diabetes mellitus. 6. Transverse colon cancer as above. 7. Hypertension. REVIEW OF SYSTEMS: The patient was reviewed and found to be anemic. This led to her colonoscopy, at which time she was found have a large mass in the transverse colon. MEDICATIONS: Omeprazole, insulin, Aldactone, lisinopril, oxycodone, Eliquis, Crestor, alprazolam, torsemide, Breo, and potassium. OBJECTIVE PHYSICAL EXAM: GENERAL: This is an extremely obese female, in no acute distress. She is alert and oriented x3. HEENT: Unremarkable. Cranial nerves 2 through 12 are normal. LUNGS: Clear. CARDIAC: Normal. ABDOMEN: Soft and nontender. Her midline incision is slightly with some serosanguineous drainage. The fascia is intact. The separation extends into the subcutaneous tissue. VITAL SIGNS: The patient's blood pressure is 108/57, temperature 98.2, pulse 90. EXTREMITIES: Unremarkable. LABORATORY DATA: The patient's creatinine is elevated on admission at 2.4. Her BUN is elevated at 44, hematocrit 25, white blood cell count 9.3. ASSESSMENT: History And Physical [address] [address] NAME: EDILMA BETTS : 48 STATUS : DIS IN PAT#: [id number] AGE: 66 ADM/REG DATE : 10/27/16 MR#: [id number] REPORT SERV DATE: 10/29/16 DICTATED BY: ALEXANDRE VALDEZ III DATE: 10/28/16 REPORT STATUS : Draft TRANSCRIBED BY: MODL DATE: 10/28/16 1. A 66-year-old female with evidence for acute renal insufficiency. 2. Superficial wound dehiscence following right colectomy and distal transverse colectomy. 3. History of adenocarcinoma of the distal transverse colon, status post appropriate surgical resection. This was a 3.5 cm stage IIA cancer. 4. Diabetes mellitus. 5. Morbid obesity. 6. Obstructive sleep apnea. 7. Hypertension. PLAN: The patient will be admitted. I have asked the hospitalist to see her in consultation regarding her renal insufficiency and complaints of dizziness. Regarding the wound, this will be treated with local wound care and antibiotics. The patient has no evidence for need for surgical intervention. The patient is extremely obese and chronically dyspneic and extremely difficult in terms of mobility and management of her medical problems. She does have chronic lung disease, which is oxygen dependent. She also has a pulmonary nodule seen on recent CT scan, for which Pulmonary evaluation is pending at this time. This plan has been explained to the patient. Her questions have been answered. She understands and agrees to this as planned. MI[facility]/NIC Alexandre Valdez III, M.D. / [id number] CC: Jany Richter III, M.D.
--- NOTE | ~2016-10-26 | OP ---
Record Of Operation [facility] [address] NAME: EDILMA BETTS : 46 STATUS : DIS IN PAT#: [id number] AGE: 66 ADM/REG DATE : 10/27/16 MR#: [id number] REPORT SERV DATE: 10/29/16 DICTATED BY: ALEXANDRE VALDEZ III DATE: 10/28/16 REPORT STATUS : Cancelled TRANSCRIBED BY: MODL DATE: 10/28/16 DATE OF PROCEDURE: 10/28/2016 PREOPERATIVE DIAGNOSIS: Symptomatic cholelithiasis, cholecystitis, and recent choledocholithiasis. POSTOPERATIVE DIAGNOSIS: Symptomatic cholelithiasis, cholecystitis, and recent choledocholithiasis. PROCEDURE: Laparoscopic cholecystectomy. SURGEON: Alexandre Valdez M.D. ANESTHESIA: General with intubation. COMPLICATIONS: None. ESTIMATED BLOOD LOSS: Less than 30 mL. SPECIMENS: Gallbladder. DRAINS: None. DICTATION ENDS HERE Roxann/NIC Alexandre Valdez III, M.D. / [id number] CC: Jany Richter III
[~2016-10-26 18:19] MED LIST changes: +PERCOCET 7.5/321 TAB PO
[2016-10-26 20:26] LABS: BE (BASE EXCESS) 1.4 MEQ/L (0 +/- 2.5); CARBOXYHEMOGLOBIN 1.5 % (0-3); HCO3 (ACTUAL BICARBONATE) 26.5 MEQ/L (23-27); HEMOBLOGIN CONTENT 9.4 G/DL (12-16); INSTRUMENT SERIAL # 8087; METHEMOGLOBIN 0.1 % (0-3); O2 CONTENT 12.8 VOL% (18-24); OPERATOR ID 334499; PCO2 (CO2 TENSION) 44 MMHG (35-45); PO2 (O2 TENSION) 98 MMHG (79-93); SAMPLE Arterial; pH 7.39 (7.37-7.43)
[2016-10-26 20:27] LABS: ALLENS TEST Pos; DEVICE NC
[2016-10-26 20:34] LABS: BASOPHILS 0.1 %; BASOPHILS ABSOLUTE 0.01 10/3/uL (0.0-0.16); EOSINOPHILS ABSOLUTE 0.09 10/3/uL (0.0-0.53); ER CBC TAT 0 Hrs 14 Mins; HEMATOCRIT 28.5 % (36.0-48.0); HEMOGLOBIN 8.9 g/dL (12.0-16.0); IMMATURE GRANULOCYTES 0.3 %; IMMATURE GRANULOCYTES ABSOLUTE 0.03 10/3/uL (0.0-0.11); LYMPHOCYTES 14.7 %; LYMPHOCYTES ABSOLUTE 1.32 10/3/uL (0.67-4.30); MANUAL DIFF NO %; MEAN CORPUS HGB CONC 31.2 g/dL (32.0-36.0); MEAN CORPUSCULAR HEMOGLOB 24.1 pg (26.0-34.0); MEAN CORPUSCULAR VOLUME 77.2 fL (80-100); MEAN PLATELET VOLUME 11.3 fL (9.2-13.0); MONOCYTES 14.1 %; MONOCYTES ABSOLUTE 1.27 10/3/uL (0.21-1.20); NEUTROPHILS 69.8 %; NEUTROPHILS ABSOLUTE 6.28 10/3/uL (2.02-8.40); PLATELET COUNT 233 10/3/uL (150-400); RBC DISTRIBUTION WIDTH 20.5 % (12.0-16.0); RED CELL COUNT 3.69 10/6/uL (4.0-5.6)
[2016-10-26 20:40] LABS: A/G RATIO 0.5 (0.7-1.9); ALBUMIN 2.6 G/DL (3.5-5.0); ALKALINE PHOSPHATASE 93 U/L (45-117); BUN (BLOOD UREA NITROGEN) 44 MG/DL (6-23); CALCIUM, SERUM 10.4 MG/DL (8.5-10.4); CHLORIDE, SERUM 103 MMOL/L (96-112); CO2 (CARBON DIOXIDE) 30 MMOL/L (24-34); CREATININE 2.41 MG/DL (0.55-1.02); GFR AFRICAN AMERICAN 23 ML/MIN (>=60); GFR NON AFRICAN AMERICAN 20 ML/MIN (>=60); GLOBULIN 5.7 G/DL (2.5-4.1); GLUCOSE, SERUM 95 MG/DL (60-99); POTASSIUM, SERUM 4.6 MMOL/L (3.5-5.3); SGOT(AST) 14 U/L (5-40); SGPT(ALT) 10 U/L (5-65); SODIUM, SERUM 142 MMOL/L (135-148); TOTAL BILIRUBIN 0.2 MG/DL (0-1.2); TOTAL PROTEIN 8.3 G/DL (6.0-8.5)
[2016-10-26 20:41] LABS: DIRECT BILIRUBIN < 0.1 MG/DL (0.0-0.4); INDIRECT BILIRUBIN(NOT ORDER) 0.1 MG/DL (0.1-0.9)
[2016-10-26 20:47] LABS: LACTATE 1.3 MMOL/L (0.3-2.4)
[2016-10-26 21:04] LABS: ASCORBIC ACID (UR NOT ORDER) NEG (NEG); BILIRUBIN, URINE NEGATIVE (NEG); ER URINALYSIS TAT 0 Hrs 13 Mins; KETONE, URINE NEGATIVE (NEG); LEUKOCYTE ESTERASE(NOT OR LARGE (NEG); NITRITE (URINE) NEG (NEG); WBC (NOT ORDERED) (RFLEX) 158 (0-5)
[2016-10-26] MEDS ORDERED: DEMA100 PO (22:04)
[2016-10-26] MEDS ORDERED: LEVAQUIN750 MG PO (22:05)
[2016-10-26] MEDS ORDERED: ENDOCET1 TA1 PO (22:06)
[2016-10-26] MEDS ORDERED: ROXICODONE15 MG PO (22:07)
[2016-10-26] MEDS ORDERED: LANTUS SC (22:08)
[2016-10-26] MEDS ORDERED: X5 PO (22:08)
[2016-10-26] MEDS ORDERED: KLOR-CON 1010 MEQ PO (22:08)
[2016-10-26] MEDS ORDERED: PRIN5 PO (22:09)
[2016-10-26] MEDS ORDERED: SPIRO25 PO (22:09)
[2016-10-26] MEDS ORDERED: ELIQUIS 5 MG TAB5 MG PO (22:10)
[2016-10-26] MEDS ORDERED: CRESTOR10 PO (22:10)
[2016-10-26] MEDS ORDERED: DUONEB INH (22:11)
[2016-10-26] MEDS ORDERED: NEXIUM40 PO (22:13)
[2016-10-26] MEDS ORDERED: NOVOLOG SC ×2 (22:13)
[2016-10-26] MEDS ORDERED: BREO ELLIPTA 21 EACH INH (22:15)
[2016-10-26] MEDS ORDERED: SENTAB PO (22:15)
[2016-10-26] MEDS ORDERED: HABIT21 TOP (22:16)
[2016-10-26] MEDS ORDERED: REFRESH OPH (22:16)
[2016-10-27 05:21] LABS: HEMOGLOBIN 8.3 g/dL (12.0-16.0); MEAN CORPUS HGB CONC 32.5 g/dL (32.0-36.0); MEAN CORPUSCULAR HEMOGLOB 24.8 pg (26.0-34.0); MEAN CORPUSCULAR VOLUME 76.1 fL (80-100); MEAN PLATELET VOLUME 10.7 fL (9.2-13.0); PLATELET COUNT 228 10/3/uL (150-400); RBC DISTRIBUTION WIDTH 20.4 % (12.0-16.0); RED CELL COUNT 3.35 10/6/uL (4.0-5.6); WHITE BLOOD CELLS 8.8 10/3/uL (4.5-10.5)
[2016-10-27 05:22] LABS: HEMATOCRIT 25.5 % (36.0-48.0)
[2016-10-27 05:50] LABS: A/G RATIO 0.4 (0.7-1.9); ALBUMIN 2.2 G/DL (3.5-5.0); BUN (BLOOD UREA NITROGEN) 41 MG/DL (6-23); CALCIUM, SERUM 10.5 MG/DL (8.5-10.4); CHLORIDE, SERUM 108 MMOL/L (96-112); CO2 (CARBON DIOXIDE) 28 MMOL/L (24-34); CREATININE 2.12 MG/DL (0.55-1.02); GFR AFRICAN AMERICAN 27 ML/MIN (>=60); GFR NON AFRICAN AMERICAN 23 ML/MIN (>=60); GLOBULIN 4.9 G/DL (2.5-4.1); GLUCOSE, SERUM 84 MG/DL (60-99); POTASSIUM, SERUM 4.3 MMOL/L (3.5-5.3); SGOT(AST) 13 U/L (5-40); SGPT(ALT) 8 U/L (5-65); SODIUM, SERUM 143 MMOL/L (135-148); TOTAL BILIRUBIN 0.2 MG/DL (0-1.2); TOTAL PROTEIN 7.1 G/DL (6.0-8.5)
[2016-10-27 05:52] LABS: ALKALINE PHOSPHATASE 64 U/L (45-117); ULTRASENSITIVE TSH < 0.005 MCIU/ML (0.358-3.740)
[2016-10-28 07:20] LABS: BASOPHILS 0.1 %; BASOPHILS ABSOLUTE 0.01 10/3/uL (0.0-0.16); EOSINOPHILS 1.8 %; EOSINOPHILS ABSOLUTE 0.17 10/3/uL (0.0-0.53); HEMATOCRIT 25.7 % (36.0-48.0); HEMOGLOBIN 8.2 g/dL (12.0-16.0); IMMATURE GRANULOCYTES 0.2 %; IMMATURE GRANULOCYTES ABSOLUTE 0.02 10/3/uL (0.0-0.11); LYMPHOCYTES 18.7 %; LYMPHOCYTES ABSOLUTE 1.74 10/3/uL (0.67-4.30); MEAN CORPUS HGB CONC 31.9 g/dL (32.0-36.0); MEAN CORPUSCULAR HEMOGLOB 24.6 pg (26.0-34.0); MEAN CORPUSCULAR VOLUME 76.9 fL (80-100); MEAN PLATELET VOLUME 10.4 fL (9.2-13.0); MONOCYTES 17.2 %; NEUTROPHILS ABSOLUTE 5.75 10/3/uL (2.02-8.40); PLATELET COUNT 223 10/3/uL (150-400); RBC DISTRIBUTION WIDTH 20.5 % (12.0-16.0); RED CELL COUNT 3.34 10/6/uL (4.0-5.6); WHITE BLOOD CELLS 9.3 10/3/uL (4.5-10.5)
[2016-10-28 07:22] LABS: MANUAL DIFF NO %
[2016-10-28 07:31] LABS: BUN (BLOOD UREA NITROGEN) 37 MG/DL (6-23); CALCIUM, SERUM 10.2 MG/DL (8.5-10.4); CHLORIDE, SERUM 106 MMOL/L (96-112); CO2 (CARBON DIOXIDE) 30 MMOL/L (24-34); CREATININE 1.92 MG/DL (0.55-1.02); GFR AFRICAN AMERICAN 30 ML/MIN (>=60); GFR NON AFRICAN AMERICAN 26 ML/MIN (>=60); GLUCOSE, SERUM 80 MG/DL (60-99); POTASSIUM, SERUM 4.8 MMOL/L (3.5-5.3); SODIUM, SERUM 143 MMOL/L (135-148)
[2016-10-29 05:51] LABS: BASOPHILS 0.1 %; BASOPHILS ABSOLUTE 0.01 10/3/uL (0.0-0.16); EOSINOPHILS 1.3 %; EOSINOPHILS ABSOLUTE 0.12 10/3/uL (0.0-0.53); HEMATOCRIT 25.1 % (36.0-48.0); IMMATURE GRANULOCYTES 0.3 %; IMMATURE GRANULOCYTES ABSOLUTE 0.03 10/3/uL (0.0-0.11); LYMPHOCYTES 16.6 %; LYMPHOCYTES ABSOLUTE 1.48 10/3/uL (0.67-4.30); MEAN CORPUS HGB CONC 31.9 g/dL (32.0-36.0); MEAN CORPUSCULAR HEMOGLOB 24.7 pg (26.0-34.0); MEAN CORPUSCULAR VOLUME 77.5 fL (80-100); MEAN PLATELET VOLUME 10.7 fL (9.2-13.0); MONOCYTES 17.8 %; MONOCYTES ABSOLUTE 1.59 10/3/uL (0.21-1.20); NEUTROPHILS 63.9 %; PLATELET COUNT 228 10/3/uL (150-400); RBC DISTRIBUTION WIDTH 20.4 % (12.0-16.0); RED CELL COUNT 3.24 10/6/uL (4.0-5.6); WHITE BLOOD CELLS 8.9 10/3/uL (4.5-10.5)
[2016-10-29 05:53] LABS: MANUAL DIFF NO %
[2016-10-29 06:09] LABS: CALCIUM, SERUM 10.5 MG/DL (8.5-10.4); CHLORIDE, SERUM 109 MMOL/L (96-112); CO2 (CARBON DIOXIDE) 31 MMOL/L (24-34); CREATININE 1.64 MG/DL (0.55-1.02); GFR AFRICAN AMERICAN 37 ML/MIN (>=60); GFR NON AFRICAN AMERICAN 32 ML/MIN (>=60); GLUCOSE, SERUM 71 MG/DL (60-99); POTASSIUM, SERUM 4.6 MMOL/L (3.5-5.3); SODIUM, SERUM 146 MMOL/L (135-148)
[2016-10-29 06:15] LABS: BUN (BLOOD UREA NITROGEN) 30 MG/DL (6-23)
[2016-10-30 05:13] LABS: BASOPHILS 0.1 %; BASOPHILS ABSOLUTE 0.01 10/3/uL (0.0-0.16); EOSINOPHILS 2.2 %; HEMATOCRIT 24.1 % (36.0-48.0); HEMOGLOBIN 7.7 g/dL (12.0-16.0); IMMATURE GRANULOCYTES 0.2 %; IMMATURE GRANULOCYTES ABSOLUTE 0.02 10/3/uL (0.0-0.11); LYMPHOCYTES ABSOLUTE 2.18 10/3/uL (0.67-4.30); MEAN CORPUSCULAR HEMOGLOB 24.6 pg (26.0-34.0); MEAN PLATELET VOLUME 10.3 fL (9.2-13.0); MONOCYTES 15.6 %; MONOCYTES ABSOLUTE 1.42 10/3/uL (0.21-1.20); NEUTROPHILS 57.9 %; NEUTROPHILS ABSOLUTE 5.26 10/3/uL (2.02-8.40); PLATELET COUNT 215 10/3/uL (150-400); RBC DISTRIBUTION WIDTH 20.7 % (12.0-16.0); RED CELL COUNT 3.13 10/6/uL (4.0-5.6); WHITE BLOOD CELLS 9.1 10/3/uL (4.5-10.5)
[2016-10-30 05:27] LABS: BUN (BLOOD UREA NITROGEN) 26 MG/DL (6-23); CALCIUM, SERUM 10.3 MG/DL (8.5-10.4); CHLORIDE, SERUM 108 MMOL/L (96-112); CO2 (CARBON DIOXIDE) 31 MMOL/L (24-34); CREATININE 1.84 MG/DL (0.55-1.02); GFR AFRICAN AMERICAN 32 ML/MIN (>=60); GFR NON AFRICAN AMERICAN 28 ML/MIN (>=60); GLUCOSE, SERUM 73 MG/DL (60-99); POTASSIUM, SERUM 4.1 MMOL/L (3.5-5.3); SODIUM, SERUM 144 MMOL/L (135-148); VANCOMYCIN TROUGH 12.7 MCG/ML (10.0-20.0)
[2016-10-30 05:31] LABS: MANUAL DIFF NO %
[2016-10-31] MEDS ORDERED: FESO4 PO (12:21)
[2016-10-31] MEDS ORDERED: LIPITOR20 PO (12:23)
[2016-11-01 07:15] LABS: BASOPHILS 0.1 %; BASOPHILS ABSOLUTE 0.01 10/3/uL (0.0-0.16); EOSINOPHILS 3.4 %; EOSINOPHILS ABSOLUTE 0.23 10/3/uL (0.0-0.53); HEMATOCRIT 27.1 % (36.0-48.0); HEMOGLOBIN 8.5 g/dL (12.0-16.0); IMMATURE GRANULOCYTES 0.3 %; IMMATURE GRANULOCYTES ABSOLUTE 0.02 10/3/uL (0.0-0.11); LYMPHOCYTES ABSOLUTE 2.13 10/3/uL (0.67-4.30); MANUAL DIFF NO %; MEAN CORPUS HGB CONC 31.4 g/dL (32.0-36.0); MEAN CORPUSCULAR HEMOGLOB 24.1 pg (26.0-34.0); MEAN PLATELET VOLUME 10.3 fL (9.2-13.0); MONOCYTES 12.4 %; MONOCYTES ABSOLUTE 0.85 10/3/uL (0.21-1.20); NEUTROPHILS 52.8 %; NEUTROPHILS ABSOLUTE 3.62 10/3/uL (2.02-8.40); PLATELET COUNT 206 10/3/uL (150-400); RBC DISTRIBUTION WIDTH 20.3 % (12.0-16.0); RED CELL COUNT 3.52 10/6/uL (4.0-5.6); WHITE BLOOD CELLS 6.9 10/3/uL (4.5-10.5)
[2016-11-01 07:23] LABS: CALCIUM, SERUM 10.4 MG/DL (8.5-10.4); CHLORIDE, SERUM 108 MMOL/L (96-112); CO2 (CARBON DIOXIDE) 29 MMOL/L (24-34); SODIUM, SERUM 144 MMOL/L (135-148)
[2016-11-01 07:24] LABS: BUN (BLOOD UREA NITROGEN) 20 MG/DL (6-23); CREATININE 1.13 MG/DL (0.55-1.02); GFR AFRICAN AMERICAN 58 ML/MIN (>=60); GFR NON AFRICAN AMERICAN 50 ML/MIN (>=60); GLUCOSE, SERUM 92 MG/DL (60-99)
== END 2016-11-01 15:32 | DRG 920 ==
LOC: ER 18:19 → 5SO 22:33
PROVIDERS: Emergency Medicine; Nurse Practitioner Family; Surgery
DX: T81.31XA Disruption of external operation (surgical) wound, not elsewhere classified, initial encounter (principal); K80.10 Calculus of gallbladder with chronic cholecystitis without obstruction; N17.9 Acute kidney failure, unspecified; J96.10 Chronic respiratory failure, unspecified whether with hypoxia or hypercapnia; J44.1 Chronic obstructive pulmonary disease with (acute) exacerbation; I11.0 Hypertensive heart disease with heart failure; I50.22 Chronic systolic (congestive) heart failure; Z99.81 Dependence on supplemental oxygen; N39.0 Urinary tract infection, site not specified; Z68.41 Body mass index [BMI] 40.0-44.9, adult; E11.9 Type 2 diabetes mellitus without complications; D50.9 Iron deficiency anemia, unspecified; I49.3 Ventricular premature depolarization; E03.9 Hypothyroidism, unspecified; K21.9 Gastro-esophageal reflux disease without esophagitis; F17.210 Nicotine dependence, cigarettes, uncomplicated; M10.9 Gout, unspecified; E66.01 Morbid (severe) obesity due to excess calories; Z86.718 Personal history of other venous thrombosis and embolism; Z79.4 Long term (current) use of insulin; Z79.899 Other long term (current) drug therapy; Z79.82 Long term (current) use of aspirin; Z88.8 Allergy status to other drugs, medicaments and biological substances; Z86.010 Personal history of colon polyps; Z85.038 Personal history of other malignant neoplasm of large intestine; Z90.49 Acquired absence of other specified parts of digestive tract; Z98.890 Other specified postprocedural states
CPT/HCPCS: 36600; 71010; 80048; 80053; 80202; 81001; 82248; 82805; 82947; 82962; 83605; 83880; 84443; 85025; 85027; 87040; 87070; 87077; 87086; 87186; 87205; 93005; 94640; 96374; 97162-GP; 99291; A9270-GY; G8978-CL-GP; G8979-CK-GP; J0694; J3370

== ENCOUNTER 2016-12-22 19:36 | Emergency (ER) | payer MEDICARE, OTHER ==
[2016-12-22 17:08] LABS: BASOPHILS 0.2 %; BASOPHILS ABSOLUTE 0.02 10/3/uL (0.0-0.16); EOSINOPHILS 0.9 %; EOSINOPHILS ABSOLUTE 0.07 10/3/uL (0.0-0.53); ER CBC TAT 0 Hrs 03 Mins; HEMOGLOBIN 9.6 g/dL (12.0-16.0); LYMPHOCYTES 29.7 %; LYMPHOCYTES ABSOLUTE 2.39 10/3/uL (0.67-4.30); MEAN CORPUS HGB CONC 32.1 g/dL (32.0-36.0); MEAN PLATELET VOLUME 10.3 fL (9.2-13.0); MONOCYTES 9.3 %; MONOCYTES ABSOLUTE 0.75 10/3/uL (0.21-1.20); NEUTROPHILS 59.9 %; NEUTROPHILS ABSOLUTE 4.81 10/3/uL (2.02-8.40); RBC DISTRIBUTION WIDTH 18.4 % (12.0-16.0); RED CELL COUNT 3.56 10/6/uL (4.0-5.6)
[2016-12-22 17:09] LABS: HEMATOCRIT 29.9 % (36.0-48.0); MANUAL DIFF NO %; PLATELET COUNT 249 10/3/uL (150-400)
[2016-12-22 17:23] LABS: BUN (BLOOD UREA NITROGEN) 29 MG/DL (6-23); CHLORIDE, SERUM 107 MMOL/L (96-112); CO2 (CARBON DIOXIDE) 25 MMOL/L (24-34); CREATININE 1.12 MG/DL (0.55-1.02); GFR AFRICAN AMERICAN 58 ML/MIN (>=60); GFR NON AFRICAN AMERICAN 50 ML/MIN (>=60); POTASSIUM, SERUM 4.4 MMOL/L (3.5-5.3); SGOT(AST) 15 U/L (5-40); SGPT(ALT) 11 U/L (5-65); SODIUM, SERUM 140 MMOL/L (135-148); TOTAL BILIRUBIN 0.1 MG/DL (0-1.2); TOTAL PROTEIN 8.1 G/DL (6.0-8.5)
[2016-12-22 17:24] LABS: A/G RATIO 0.6 (0.7-1.9); ALBUMIN 3.1 G/DL (3.5-5.0); ALKALINE PHOSPHATASE 99 U/L (45-117); GLUCOSE, SERUM 106 MG/DL (60-99)
[2016-12-22 18:53] LABS: ASCORBIC ACID (UR NOT ORDER) NEG (NEG); BILIRUBIN, URINE NEGATIVE (NEG); ER URINALYSIS TAT 0 Hrs 14 Mins; KETONE, URINE NEGATIVE (NEG); LEUKOCYTE ESTERASE(NOT OR NEG (NEG); NITRITE (URINE) NEG (NEG); WBC (NOT ORDERED) (RFLEX) 1 (0-5)
[~2016-12-22 19:36] MED LIST changes: +DUONEB INH; +ENDOCET1 TA1 PO; +FESO4 PO; +HABIT21 TOP; +LIPITOR20 PO; +PRIN5 PO; +REFRESH OPH; +SENTAB PO
== END 2016-12-22 20:39 | disposition home or self-care (01) ==
LOC: ER 19:36
PROVIDERS: Emergency Medicine
DX: M25.572 Pain in left ankle and joints of left foot (principal); J44.9 Chronic obstructive pulmonary disease, unspecified; I11.0 Hypertensive heart disease with heart failure; I50.9 Heart failure, unspecified; G47.30 Sleep apnea, unspecified; F17.200 Nicotine dependence, unspecified, uncomplicated; E11.9 Type 2 diabetes mellitus without complications; Z88.2 Allergy status to sulfonamides; Z88.8 Allergy status to other drugs, medicaments and biological substances; Z91.09 Other allergy status, other than to drugs and biological substances; Z79.4 Long term (current) use of insulin; Z79.899 Other long term (current) drug therapy
CPT/HCPCS: 73630-LT; 80053; 81001; 83690; 84550; 85025; 96372; 99284; J1885